=== PATIENT | female | born 1995 | race Caucasian/White ===

== ENCOUNTER 2016-05-25 16:03 | Inpatient (IN) | payer OTHER ==
[2016-05-25 17:02] LABS: Hematocrit 43 % (35-47); Hemoglobin 14.3 g/dl (12.0-16.0); Mean Corpuscular HGB Conc 33 g/dl (31-36); Mean Corpuscular Hemoglobin 29 pg (27-31); Mean Corpuscular Volume 87 fL (80-97); Mean Platelet Volume 8 um3 (7.4-10.4); Red Blood Count 4.98 10^6/ul (4.0-5.4); Red Cell Distribution Width 13 % (10.5-15); White Blood Count 8.4 10^3/ul (3.5-10.8)
[2016-05-25 17:09] LABS: Urine Bacteria Absent (Absent); Urine Bilirubin Negative (Negative); Urine Glucose Negative (Negative); Urine Nitrite Negative (Negative)
[2016-05-25 17:16] LABS: ALT 15 U/L (7-52); AST 17 U/L (13-39); Albumin 4.5 g/dL (3.2-5.2); Alkaline Phosphatase 69 U/L (34-104); Anion Gap 5 mmol/L (2-11); BUN/Creatinine Ratio 13.6 (8-20); Blood Urea Nitrogen 12 mg/dL (6-24); CO2 Carbon Dioxide 26 mmol/L (22-32); Calcium 9.8 mg/dL (8.6-10.3); Chloride 106 mmol/L (101-111); EGFR African American 105.4 (>60); EGFR Non-African American 81.9 (>60); Glucose 91 mg/dL (70-100); Potassium 3.9 mmol/L (3.5-5.0); Sodium 137 mmol/L (133-145); Total Protein 7.5 g/dL (6.4-8.9)
[2016-05-25 17:20] LABS: Benzodiazepine Urine Screen None Detected (None Detect)
[2016-05-25 18:00] LABS: Acetaminophen < 15 mcg/mL; Alcohol < 10 mg/dL (<10); Salicylate < 2.50 mg/dL (<30)
--- NOTE | 2016-05-25 18:01 | ED ---
Cecilio Harry Adam, scribed for Bran Her MD on 05/25/16 at 1631 . Psychiatric Complaint - HPI Summary HPI Summary: Pt is a 20 year old female presenting with a "dissociative episode" and SI. She states that for the past week she has had dissociative episodes approximately once a day. This morning she "blacked out" at 03:00 and came to again in her living room hours later. She came to the ED because she could not reach her therapist or her psychiatrist. She does not remember anything between 03:00 and when she awoke in her living room but she states that she often harms herself when she dissociates like this. She denies inflicting any self-harm today. She believes that stress tends to cause her to dissociate. Dr. Mina is her psychiatrist but she states that she has not seen her in awhile because she has been busy with court and work. She was previously on Wellbutrin and Seroquel but has not been taking them recently. PMHx includes anxiety, depression, PTSD, and DM. - History Of Current Complaint Chief Complaint: EDMentalHealth Time Seen by Provider: 05/25/16 16:22 Hx Obtained From: Patient Onset/Duration: Gradual Onset, Lasting Hours, Still Present Timing: Constant Severity Initially: Moderate Severity Currently: Mild Character: Depressed, Anxious Aggravating Factor(s): Recent Stress Alleviating Factor(s): Nothing Related History: Positive For: Prior Psychiatric Issues Has Suicidal: Reports: Thoughts - Allergies/Home Medications Allergies/Adverse Reactions: Allergies Allergy/AdvReac Type Severity Reaction Status Date / Time Fish Allergy Allergy Severe Swelling Verified 05/25/16 16:09 Of Face,Lips,& Throat Lactose Intolerance (GI) Allergy Intermediate Stomach Verified 05/25/16 16:09 Cramps Codeine Allergy Rash And Verified 05/25/16 16:09 Itching; "throat swelling" Latex Allergy Rash Verified 05/25/16 16:09 Venlafaxine [From Effexor] Allergy Hives; Verified 05/25/16 16:09 "throat swelling" adhesives Allergy Severe Rash And Uncoded 05/25/16 16:09 Itching shellfish Allergy Severe Swelling Uncoded 05/25/16 16:09 Of Face,Lips,& Throat PMH/Surg Hx/FS Hx/Imm Hx Endocrine/Hematology History: Reports: Hx Diabetes - 1 1/2 yrs ago gestational resolved, Hx Thyroid Disease Cardiovascular History: Denies: Hx Hypertension Respiratory History: Reports: Hx Seasonal Allergies Denies: Hx Asthma, Hx Chronic Obstructive Pulmonary Disease (COPD), Hx Sleep Apnea GI History: Reports: Other GI Disorders - hx bowel sx, working with PCP Denies: Hx Ulcer History: Reports: Hx Kidney Infection, Other Problems/Disorders - freq utis currently tx. PID Neurological History: Reports: Hx Headaches, Hx Migraine Psychiatric History: Reports: Hx Anxiety, Hx Depression, Hx Post Traumatic Stress Disorder, Hx Community Mental Health Tx, Hx Substance Abuse, Other Psychiatric Issues/Disorders - borderline personality disorder, hallucinations Denies: Hx Eating Disorder, Hx of Violent Episodes Against Others - Surgical History Surgery Procedure, Year, and Place: -JUL 09 - Immunization History Date of Tetanus Vaccine: unknown Date of Influenza Vaccine: none Infectious Disease History: No Infectious Disease History: Denies: Hx Clostridium Difficile, Hx Hepatitis, Hx Human Immunodeficiency Virus (HIV), Hx of Known/Suspected MRSA, Hx Shingles, Hx Tuberculosis, Hx Known/ Suspected VRE, Hx Known/Suspected VRSA, History Other Infectious Disease, Traveled Outside the [place] in Last 30 Days - Family History Known Family History: Positive: Diabetes Negative: Other - [place] - Social History Occupation: Employed Full-time Lives: Alone Alcohol Use: Rare Hx Substance Use: Yes Substance Use Type: Reports: Marijuana Substance Use Comment - Amount & Last Used: last use September 2015 Hx Tobacco Use: Yes Smoking Status (MU): Light Every Day Tobacco Smoker Type: Cigarettes Amount Used/How Often: 1 PACK Q3 DAYS Length of Time of Smoking/Using Tobacco: 3 years Have You Smoked in the Last Year: Yes Review of Systems Constitutional: Negative Negative: Fever Skin: Negative Negative: Bruising Positive: Anxious, Depressed All Other Systems Reviewed And Are Negative: Yes Physical Exam Triage Information Reviewed: Yes Vital Signs On Initial Exam: Initial Vitals Temp Pulse Resp BP Pulse Ox 97.7 F 109 16 117/72 98 05/25/16 16:06 05/25/16 16:06 05/25/16 16:06 05/25/16 16:06 05/25/16 16:06 Vital Signs Reviewed: Yes Appearance: Positive: Well-Appearing, No Pain Distress Skin: Positive: Warm, Skin Color Reflects Adequate Perfusion, Dry Head/Face: Positive: Normal Head/Face Inspection Eyes: Positive: Normal ENT: Positive: Normal ENT inspection Neck: Positive: Supple, Nontender Respiratory/Lung Sounds: Positive: Clear to Auscultation, Breath Sounds Present Cardiovascular: Positive: RRR Abdomen Description: Positive: Nontender, Soft Bowel Sounds: Positive: Present Musculoskeletal: Positive: Normal Neurological: Positive: Normal Psychiatric: Positive: Depressed Diagnostics - Vital Signs Vital Signs Temp Pulse Resp BP Pulse Ox 05/25/16 16:06 97.7 F 109 16 117/72 98 - Laboratory Lab Results: Lab Results 05/25/16 05/25/16 05/25/16 Range/Units 16:43 16:43 16:43 WBC 8.4 (3.5-10.8) 10^3/ul RBC 4.98 (4.0-5.4) 10^6/ul Hgb 14.3 (12.0-16.0) g/dl Hct 43 (35-47) % MCV 87 (80-97) fL MCH 29 (27-31) pg MCHC 33 (31-36) g/dl RDW 13 (10.5-15) % Plt Count 222 (150-450) 10^3/ul MPV 8 (7.4-10.4) um3 Neut % (Auto) 62.9 (38-83) % Lymph % (Auto) 26.6 (25-47) % Rab[place] % (Auto) 8.9 (1-9) % Eos % (Auto) 1.1 (0-6) % Baso % (Auto) 0.5 (0-2) % Absolute Neuts (auto) 5.3 (1.5-7.7) 10^3/ul Absolute Lymphs (auto) 2.2 (1.0-4.8) 10^3/ul Absolute Monos (auto) 0.8 (0-0.8) 10^3/ul Absolute Eos (auto) 0.1 (0-0.6) 10^3/ul Absolute Basos (auto) 0 (0-0.2) 10^3/ul Absolute Nucleated RBC 0 10^3/ul Nucleated RBC % 0 Sodium 137 (133-145) mmol/L Potassium 3.9 (3.5-5.0) mmol/L Chloride 106 (101-111) mmol/L Carbon Dioxide 26 (22-32) mmol/L Anion Gap 5 (2-11) mmol/L BUN 12 (6-24) mg/dL Creatinine 0.88 (0.51-0.95) mg/dL Est GFR ( Amer) 105.4 (>60) Est GFR (Non-Af Amer) 81.9 (>60) BUN/Creatinine Ratio 13.6 (8-20) Glucose 91 (70-100) mg/dL Calcium 9.8 (8.6-10.3) mg/dL Total Bilirubin 0.50 (0.2-1.0) mg/dL AST 17 (13-39) U/L ALT 15 (7-52) U/L Alkaline Phosphatase 69 (34-104) U/L Total Protein 7.5 (6.4-8.9) g/dL Albumin 4.5 (3.2-5.2) g/dL Globulin 3.0 (2-4) g/dL Albumin/Globulin Ratio 1.5 (1-3) TSH Pending Beta HCG, Quant < 0.60 mIU/mL Urine Color Yellow Urine Appearance Cloudy Urine pH 5.0 (5-9) Ur Specific [place] 1.020 (1.010-1.030) Urine Protein Negative (Negative) Urine Ketones Negative (Negative) Urine Blood 1+ H (Negative) Urine Nitrate Negative (Negative) Urine Bilirubin Negative (Negative) Urine Urobilinogen Negative (Negative) Ur Leukocyte Esterase 2+ H (Negative) Urine WBC (Auto) Trace(0-5/hpf) (Absent) Urine RBC (Auto) 1+(3-5/hpf) H (Absent) Ur Squamous Epith Cells Present H (Absent) Urine Bacteria Absent (Absent) Urine Glucose Negative (Negative) Salicylates Pending Urine Opiates Screen (None Detect) Acetaminophen Pending Ur Barbiturates Screen (None Detect) Ur Phencyclidine Scrn (None Detect) Ur Amphetamines Screen (None Detect) U Benzodiazepines Scrn (None Detect) Urine Cocaine Screen (None Detect) U Cannabinoids Screen (None Detect) Serum Alcohol Pending 05/25/16 Range/Units 16:43 WBC (3.5-10.8) 10^3/ul RBC (4.0-5.4) 10^6/ul Hgb (12.0-16.0) g/dl Hct (35-47) % MCV (80-97) fL MCH (27-31) pg MCHC (31-36) g/dl RDW (10.5-15) % Plt Count (150-450) 10^3/ul MPV (7.4-10.4) um3 Neut % (Auto) (38-83) % Lymph % (Auto) (25-47) % [place] % (Auto) (1-9) % Eos % (Auto) (0-6) % Baso % (Auto) (0-2) % Absolute Neuts (auto) (1.5-7.7) 10^3/ul Absolute Lymphs (auto) (1.0-4.8) 10^3/ul Absolute Monos (auto) (0-0.8) 10^3/ul Absolute Eos (auto) (0-0.6) 10^3/ul Absolute Basos (auto) (0-0.2) 10^3/ul Absolute Nucleated RBC 10^3/ul Nucleated RBC % Sodium (133-145) mmol/L Potassium (3.5-5.0) mmol/L Chloride (101-111) mmol/L Carbon Dioxide (22-32) mmol/L Anion Gap (2-11) mmol/L BUN (6-24) mg/dL Creatinine (0.51-0.95) mg/dL Est GFR ( Amer) (>60) Est GFR (Non-Af Amer) (>60) BUN/Creatinine Ratio (8-20) Glucose (70-100) mg/dL Calcium (8.6-10.3) mg/dL Total Bilirubin (0.2-1.0) mg/dL AST (13-39) U/L ALT (7-52) U/L Alkaline Phosphatase (34-104) U/L Total Protein (6.4-8.9) g/dL Albumin (3.2-5.2) g/dL Globulin (2-4) g/dL Albumin/Globulin Ratio (1-3) TSH Beta HCG, Quant mIU/mL Urine Color Urine Appearance Urine pH (5-9) Ur Specific [place] (1.010-1.030) Urine Protein (Negative) Urine Ketones (Negative) Urine Blood (Negative) Urine Nitrate (Negative) Urine Bilirubin (Negative) Urine Urobilinogen (Negative) Ur Leukocyte Esterase (Negative) Urine WBC (Auto) (Absent) Urine RBC (Auto) (Absent) Ur Squamous Epith Cells (Absent) Urine Bacteria (Absent) Urine Glucose (Negative) Salicylates Urine Opiates Screen None detected (None Detect) Acetaminophen Ur Barbiturates Screen None detected (None Detect) Ur Phencyclidine Scrn None detected (None Detect) Ur Amphetamines Screen None detected (None Detect) U Benzodiazepines Scrn None detected (None Detect) Urine Cocaine Screen None detected (None Detect) U Cannabinoids Screen Presumptive positive H (None Detect) Serum Alcohol Result Diagrams: 05/25/16 16:43 05/25/16 16:43 Lab Statement: Any lab studies that have been ordered have been reviewed, and results considered in the medical decision making process. Course/Dx - Course Course Of Treatment: Stephanie presented concerned for her safety after being off medications for a prolonged time. She has been medically cleared and is awaiting [facility]. - Differential Dx/Clinical Impression Provider Diagnosis: Depression Discharge - Discharge Plan Condition: Stable Disposition: HOME The documentation as recorded by the Cecilio mancuso Adam accurately reflects the service I personally performed and the decisions made by me, Bran Her MD.
[2016-05-25 18:11] LABS: TSH (Thyroid Stimulating Horm) 7.84 mcIU/mL (0.34-5.60)
[2016-05-25] MEDS ORDERED: Ibuprofen TAB* 600 MG PO ONE (19:59)
[2016-05-26] MEDS ORDERED: Nicotine Inhaler* 10 MG AMP INH PRN (01:43)
[2016-05-26] MEDS ORDERED: Acetaminophen TAB* 325 MG PO PRN (01:43)
[2016-05-26] MEDS ORDERED: Nicotine GUM* 2 MG PO PRN (01:43)
[2016-05-26] MEDS ORDERED: Al Hydrox/Mg Hydrox/Simet LIQ* 30 ML UDC PO PRN (01:43)
[2016-05-26] MEDS ORDERED: Mouth Piece, Nicotine* 1 EACH CARTRIDGE INH SCH (01:43)
[2016-05-26] MEDS: Nicotine PATCH 14 MG/24 HR* PATCH TRANSDERM SCH ×2 (11:11→11:41)
[2016-05-26] MEDS: Vitamin THERAPEUTIC TAB PO SCH ×2 (11:11→11:43)
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
[2016-05-26] MEDS: Levothyroxine TAB* 150 MCG TAB PO SCH (16:10)
[2016-05-26] MEDS: Nicotine Patch Removal NOTE PATCH OFF SCH (20:44)
[2016-05-26] MEDS ORDERED: QUEtiapine TAB* 25 MG PO SCH (21:00)
[2016-05-27] MEDS: Levothyroxine TAB* 150 MCG TAB PO SCH (06:30)
[2016-05-27] MEDS: Nicotine PATCH 14 MG/24 HR* PATCH TRANSDERM SCH (10:00)
[2016-05-27] MEDS: Vitamin THERAPEUTIC TAB PO SCH (10:00)
[2016-05-27] MEDS: Citalopram TAB* 10 MG PO SCH (10:46)
--- NOTE | 2016-05-27 12:35 | PN ---
Subjective - Subjective Service Type: 16961 Hosp care 15 min low complexity Subjective: Usman reports prominent symptom of irritability to the degree that the sounds of peoples voices make her agitated, attributes this to Seroquel. Reports only dry mouth with first dose of Celexa 10 mg. Denies any active psychosis, denies any dangerous intent or plan. Objective - Appearance Appearance: Well Developed/Nourished, Healthy Appearing Dysmorphic Features: No Hygiene: Normal Grooming: Well Kept - Behavior Psychomotor Activities: Normal Exhibits Abnormal Movement: No - Attitude and Relatedness Attitude and Relatedness: Well Related Eye Contact: Good - Speech Quality: Unpressured Latencies: Normal Quantity: Appropriate - Mood Patient's Decription of Mood: "Okay" - Affect Observed Affect: Good Affect Consistent with: Euthymia - Thought Process Patient's Thought Process: Coherent, Goal Directed Thought Content: No Passive Wish, No Suicidal Planning, No Homicidal Ideation, No Paranoid Ideation - Sensorium Experiencing Hallucinations: No, Sensorium is Clear Type of Hallucinations: Visual: No, Auditory: No, Command: No - Level of Consciousness Level of Consciousness: Alert Orientation: Yes Intact, Yes Orientated to Time, Yes Orientated to Place, Yes Orientated to Person - Impulse Control Impulse Control: Intact - Insight and Judgement Insight and Judgement: Fair - Group Participation Particating in Group Activities: No - Medication Management Medication Management Adherence: Yes Assessment - Assessment Merits Inpatient Hospitalization: For Stabilization, To Initiate Treatment, Consolidate Improvements, For Discharge Planning Inpatient DSM-IV Dx: Schizoaffective disorder, depressive type. r/o PTSD. Panic disorder Clinical Impression: Ms Kendrick Burns was admitted for SI to OD on old meds she found, also a severe dissociative spell. We have restarted Lamictal, added Celexa (which is new to her) and replaced Seroquel with Abilify 5 mg starting dose. [facility] reports remission of SI and stable mood and anticipates being ready to discharge tomorrow to continued care at [facility]. She has declined most groups, but has been med compliant. She has been pleasant and collaborative. Plan - Plan Treatment Plan: Name: USMAN HERRERA Birthdate: 1995 [id number] Continue Celexa, Abilify, levothyroxine, lamotrigine. Monitor MS and safety. Plan toward d/c tomorrow or Wednesday. Still awaiting return call from Dr Mina. Continued Medication Management: Different Medication Medications: Current Medications Acetaminophen (Tylenol Tab*) 650 mg PO Q4H PRN PRN Reason: PAIN or TEMP > 101 F Last Admin: 05/26/16 14:02 Dose: 650 mg Al Hydrox/Mg Hydrox/Simethicone (Maalox Plus*) 30 ml PO Q4H PRN PRN Reason: INDIGESTION Aripiprazole (Abilify Tab*) 5 mg PO DAILY [facility] Citalopram Hydrobromide (Celexa Tab*) 10 mg PO DAILY [facility] Last Admin: 05/27/16 10:46 Dose: 10 mg Device (Nicotine Mouth Piece*) 1 each INH .[facility] Levothyroxine Sodium (Synthroid Tab*) 150 mcg PO 0600 [facility] Last Admin: 05/27/16 06:30 Dose: 150 mcg Multivitamins (Theragran Tab*) 1 tab PO DAILY [facility] Last Admin: 05/27/16 10:00 Dose: 1 tab Nicotine (Nicotine Inhaler*) 10 mg INH Q2H PRN PRN Reason: CRAVING Nicotine (Nicotine Patch 14 Mg/24 Hr*) 1 patch TRANSDERM DAILY [facility] Last Admin: 05/27/16 10:00 Dose: 1 patch Nicotine Polacrilex (Nicotine Gum*) 2 mg PO Q2H PRN PRN Reason: CRAVING Pharmacy Profile Note (Nicotine Patch Removal Note*) 1 note PATCH OFF 2100 [facility] Last Admin: 05/26/16 20:44 Dose: 1 note - Discharge Plan Discharge Plan: Outpatient Follow Up Outpatient Program: [facility]
[2016-05-27] MEDS: ARIPiprazole TAB* 5 MG PO SCH (13:19)
[2016-05-27] MEDS ORDERED: lamoTRIgine TAB(*) 25 MG PO SCH (21:00)
[2016-05-27] MEDS: Nicotine Patch Removal NOTE PATCH OFF SCH (21:05)
[2016-05-28] MEDS: Levothyroxine TAB* 150 MCG TAB PO SCH (05:59)
[2016-05-28 09:02] VITALS: BP 111/76
[2016-05-28] MEDS: Nicotine PATCH 14 MG/24 HR* PATCH TRANSDERM SCH (09:37)
[2016-05-28] MEDS: Vitamin THERAPEUTIC TAB PO SCH (09:37)
[2016-05-28] MEDS: ARIPiprazole TAB* 5 MG PO SCH (09:37)
[2016-05-28] MEDS: Citalopram TAB* 10 MG PO SCH (09:37)
--- NOTE | 2016-05-28 10:19 | DS ---
Subjective - Subjective Service Types: 44[address] [facility]osp [place] Day Mgmt simple under 30 min Discharge Date: 05/28/16 Subjective: Stephanie reports sustained and full remission of SI and dissociative experience. She reports feeling safe and ready for discharge. She complains of tolerable hiccups since starting abilify, but would prefer to continue the trial of this medication. Dr Mina left me a voice message saying she last saw Stephanie in September, that Stephanie had most recently been on Wellbutrin and Seroquel, and has had trials of Saphris, Zyprexa and Latuda, but stopped them due to side effects or ineffectiveness. Objective - Appearance Appearance: Healthy Appearing Dysmorphic Features: No Hygiene: Normal Grooming: Fairly Well Kept - Behavior Psychomotor Activities: Normal Exhibits Abnormal Movement: No - Attitude and Relatedness Attitude and Relatedness: Cooperative Eye Contact: Good - Speech Quality: Unpressured Latencies: Normal Quantity: Appropriate - Mood Patient's Decription of Mood: "Fine" - Affect Observed Affect: Good Affect Consistent with: Euthymia - Thought Process Patient's Thought Process: Coherent, Goal Directed Thought Content: No Passive Wish, No Suicidal Planning, No Homicidal Ideation, No Paranoid Ideation - Sensorium Experiencing Hallucinations: No, Sensorium is Clear Type of Hallucinations: Visual: No, Auditory: No, Command: No - Level of Consciousness Level of Consciousness: Alert Orientation: Yes Intact, Yes Orientated to Time, Yes Orientated to Place, Yes Orientated to Person - Impulse Control Impulse Control: Intact - Insight and Judgement Insight and Judgement: Fair - Group Participation Particating in Group Activities: Yes Group Participation Comments: but declines most groups - Medication Management Medication Management Adherence: Yes Treatment Course & Assessment Clinical Course & Impression: Ms Kendrick Burns was admitted for SI to OD on old meds she found, also a severe dissociative spell. We have restarted Lamictal, added Celexa (which is new to her) and replaced Seroquel with Abilify 5 mg starting dose. She reports remission of SI and stable mood and anticipates being ready to discharge tomorrow to continued care at [facility]. She has declined most groups, but has been med compliant. She has been pleasant and collaborative. 05.28.16 Stephanie is cleared for discharge. She has reported full remission of all dangerous intent and plan, and no recurrence of dissociation, the symptoms prompting this admission out of safety concerns. She is assessed as at no acutely increased risk of harm to self or others. She will follow up with outpatient providers regarding report of cramping and lower back pain with history of renal infection that makes her worried at the possibility of recurrence. [facility] Merits Inpatient Hospitalization: No Clear for Discharge: Adequate Clinical Respons, Acceptable Safety Profile, Low Utility of Inpt Care Inpatient DSM-IV Dx: Schizoaffective disorder, depressive type. r/o PTSD. Panic disorder - Valentine III Medical Illness: hypothyroidism. VSD leading to occasional syncope - Valentine IV Stressors: marital stress, limited finances Family: has been talking of divorce, lives with younger sister Primary Support Group: sister - Valentine V SVV-[id number]-[id number]: 65 Estimate of Highest-Past Year: 65 Discharge Planning - Discharge Planning Discharge Plan: Outpatient Follow Up Outpatient Program: [facility] Recommendations for Continuing Care: Medication Management, Psychotherapy, Primary Care Followup - re ?UTI Medications: Aripiprazole (Abilify Tab*) 5 mg PO DAILY [facility] Last Admin: 05/28/16 09:37 Dose: 5 mg Citalopram Hydrobromide (Celexa Tab*) 10 mg PO DAILY [facility] Last Admin: 05/28/16 09:37 Dose: 10 mg Lamotrigine (Lamictal Tab(*)) 25 mg PO BEDTIME [facility] Last Admin: 05/27/16 21:05 Dose: 25 mg Levothyroxine Sodium (Synthroid Tab*) 150 mcg PO 0600 [facility] Last Admin: 05/28/16 05:59 Dose: 150 mcg Multivitamins (Theragran Tab*) 1 tab PO DAILY [facility] Last Admin: 05/28/16 09:37 Dose: 1 tab Nicotine (Nicotine Patch 14 Mg/24 Hr*) 1 patch TRANSDERM DAILY [facility] Last Admin: 05/28/16 09:37 Dose: 1 patch x 14 days, then 7 mg patches daily x 14 days Discharge Planning: Prescriptions provided for discharge [x] Yes [] No Follow up care details as per social work arrangements. Patient response to discharge plan: [x] eager for discharge [x] agreeable with discharge plan [] ambivalent about discharge [] disagrees with discharge today Stephanie agreed to follow up immediately with PCP regarding UTI symptoms, hypothyroidism. Stephanie voiced understanding and acceptance of potential side effects of Celexa, Abilify and Lamictal that I reviewed with her. She agreed she would seek immediate medical attention in case rash occurs while taking Lamictal.
== END 2016-05-28 14:05 | disposition home or self-care (01) | DRG 750 ==
LOC: ED 16:03 → BSU 21:14
PROVIDERS: ADMIT Psychiatry & Neurology Psychiatry; ATTEND Psychiatry & Neurology Psychiatry
PROC: GZ3ZZZZ Medication Management (ICD-10-PCS; principal; 2016-05-25)
DX: F25.1 Schizoaffective disorder, depressive type (principal); Q21.0 Ventricular septal defect; F43.10 Post-traumatic stress disorder, unspecified; F41.0 Panic disorder [episodic paroxysmal anxiety]; E03.9 Hypothyroidism, unspecified; R55 Syncope and collapse; F32.9 Major depressive disorder, single episode, unspecified; E73.9 Lactose intolerance, unspecified; J30.2 Other seasonal allergic rhinitis; G43.909 Migraine, unspecified, not intractable, without status migrainosus; F60.3 Borderline personality disorder; F12.90 Cannabis use, unspecified, uncomplicated; F17.210 Nicotine dependence, cigarettes, uncomplicated; Z91.5 Personal history of self-harm; Z81.8 Family history of other mental and behavioral disorders; Z88.5 Allergy status to narcotic agent; Z91.040 Latex allergy status; Z91.013 Allergy to seafood; Z91.018 Allergy to other foods; Z91.048 Other nonmedicinal substance allergy status; Z88.8 Allergy status to other drugs, medicaments and biological substances; Z83.3 Family history of diabetes mellitus; Z72.89 Other problems related to lifestyle
CPT/HCPCS: 36415; 80053; 80307; 80320; 80329; 81003; 81015; 84443; 84702; 85025; 87086; 99222; 99231; 99238; 99406; A9270-GY; G0480

== ENCOUNTER 2016-09-21 14:46 | Emergency (ER) | payer OTHER ==
[2016-09-21 15:06] VITALS: BP 101/73
--- NOTE | 2016-09-21 17:01 | UC ---
Abdominal Pain Female HPI - HPI Summary HPI Summary: Low abd pain, cramping, low back pain, urinary frequency starting yesterday. Took preg test yesterday, it was positive, had IUD out 08/19/16. Denies fever or vaginal bleeding. Back pain feels like what she gets with UTIs. (1 live 1 spontaneous ab) - History of Current Complaint Chief Complaint: UCAbdominalPain Stated Complaint: ABD PAIN,POS PREG Time Seen by Provider: 09/21/16 16:37 Hx Obtained From: Patient Hx Last Menstrual Period: 08/05/16 ?: Yes Onset/Duration: Gradual Onset, Lasting Days Timing: Constant Severity Initially: Mild Severity Currently: Mild Location: Suprapubic Radiates: Yes Radiates to: Back Character: Cramping Alleviating Factor(s): Nothing Associated Signs and Symptoms: Positive: Urinary Symptoms Allergies/Adverse Reactions: Allergies Allergy/AdvReac Type Severity Reaction Status Date / Time Fish Allergy Allergy Severe Swelling Verified 09/21/16 14:55 Of Face,Lips,& Throat Lactose Intolerance (GI) Allergy Intermediate Stomach Verified 09/21/16 14:55 Cramps Codeine Allergy Rash And Verified 09/21/16 14:55 Itching; "throat swelling" Latex Allergy Rash Verified 09/21/16 14:55 Venlafaxine [From Effexor] Allergy Hives; Verified 09/21/16 14:55 "throat swelling" adhesives Allergy Severe Rash And Uncoded 09/21/16 14:55 Itching shellfish Allergy Severe Swelling Uncoded 09/21/16 14:55 Of Face,Lips,& Throat Home Medications: Home Medications Levothyroxine TAB* [Synthroid 150 MCG TAB*] 175 mcg PO DAILY 09/21/16 [History Confirmed 09/21/16] lamoTRIgine TAB(*) [Lamictal TAB(*)] 100 mg PO BEDTIME 09/21/16 [History Confirmed 09/21/16] PMH/Surg Hx/FS Hx/Imm Hx Endocrine History Of: Reports: Diabetes - 1 1/2 yrs ago gestational resolved, Thyroid Disease, Hypothyroidism - synthroid 88mcg daily Cardiovascular History Of: Reports: Cardiac Disorders Denies: Hypertension Respiratory History Of: Denies: COPD, Asthma GI/ History Of: Denies: Ulcer Neurological History Of: Reports: Migraine Denies: Dementia Psychological History Of: Reports: Anxiety, Depression - Surgical History Surgical History: Yes Surgery Procedure, Year, and Place: Appendectomy Jun 2015 - Family History Known Family History: Positive: Diabetes Negative: Other - [place] - Social History Lives: With Family Alcohol Use: Occasionally Substance Use Type: Marijuana Substance Use Comment - Amount & Last Used: drug screen positive for vilma Smoking Status (MU): Light Every Day Tobacco Smoker Type: Cigarettes Amount Used/How Often: 1/2 pack a day Length of Time of Smoking/Using Tobacco: 3 years Have You Smoked in the Last Year: Yes Household Exposure Type: Cigarettes - Immunization History Most Recent Influenza Vaccination: over five years ago Most Recent Tetanus Shot: utd Most Recent Pneumonia Vaccination: n/a Vaccination Up to Date: Yes Review of Systems Constitutional: Negative Skin: Negative Eyes: Negative ENT: Negative Respiratory: Negative Cardiovascular: Negative Gastrointestinal: Abdominal Pain Genitourinary: Frequency, Urgency Motor: Negative Neurovascular: Negative Musculoskeletal: Negative Neurological: Negative Psychological: Negative All Other Systems Reviewed And Are Negative: Yes Physical Exam Triage Information Reviewed: Yes Appearance: Well-Appearing, No Pain Distress, Well-Nourished Vital Signs: Initial Vital Signs Temp 97.7 F 09/21/16 14:57 Pulse 91 09/21/16 14:57 Resp 20 09/21/16 14:57 BP 101/73 09/21/16 14:57 Pulse Ox 100 09/21/16 14:57 Vital Signs Reviewed: Yes Eye Exam: Normal Eyes: Positive: Conjunctiva Clear ENT Exam: Normal ENT: Positive: Normal ENT inspection, Hearing grossly normal, Pharynx normal, TMs normal Dental Exam: Normal Neck exam: Normal Neck: Positive: Supple, Nontender, No Lymphadenopathy Respiratory Exam: Normal Respiratory: Positive: Chest non-tender, Lungs clear, Normal breath sounds, No respiratory distress, No accessory muscle use Cardiovascular Exam: Normal Cardiovascular: Positive: RRR, No Murmur Abdomen Description: Positive: No Organomegaly, Soft. Negative: CVA Tenderness (R), CVA Tenderness (L), Distended Bowel Sounds: Positive: Present Musculoskeletal Exam: Normal Neurological Exam: Normal Neurological: Positive: Alert Psychological Exam: Normal Skin Exam: Normal Abd Pain Female Course/Dx - Differential Dx/Diagnosis Provider Diagnoses: . UTI Discharge - Discharge Plan Condition: Stable Disposition: HOME Prescriptions: Cephalexin CAP* [Keflex 500 CAP*] 500 mg PO TID #21 cap Vitamin TAB* 1 tab PO DAILY #60 tab Patient Education Materials: (ED), Urinary Tract Infection in (ED) Referrals: Nanette Lucio MD [Primary Care Provider] - Chester Abdi MD [Medical Doctor] - Additional Instructions: Please follow up with Dr. Abdi for routine care. If you develop fever, worsening back pain, or prolonged urinary symptoms, please return here.
== END 2016-09-21 16:59 | disposition home or self-care (01) ==
LOC: UCEAST 14:46
DX: O23.40 Unspecified infection of urinary tract in pregnancy, unspecified trimester (principal); G43.909 Migraine, unspecified, not intractable, without status migrainosus; F41.9 Anxiety disorder, unspecified; F32.9 Major depressive disorder, single episode, unspecified; F17.210 Nicotine dependence, cigarettes, uncomplicated; O99.320 Drug use complicating pregnancy, unspecified trimester; F12.90 Cannabis use, unspecified, uncomplicated; O99.330 Smoking (tobacco) complicating pregnancy, unspecified trimester; O99.340 Other mental disorders complicating pregnancy, unspecified trimester; Z91.040 Latex allergy status; Z91.011 Allergy to milk products; Z88.5 Allergy status to narcotic agent; Z91.013 Allergy to seafood
CPT/HCPCS: 81003; 87077; 87086; 87186; 99212; G0463

== ENCOUNTER 2016-09-24 18:48 | Emergency (ER) | payer OTHER ==
[2016-09-24 21:19] LABS: Urine Bacteria Absent (Absent); Urine Bilirubin Negative (Negative); Urine Glucose Negative (Negative); Urine Nitrite Negative (Negative)
[2016-09-24 21:46] VITALS: BP 112/70
[2016-09-24 22:38] LABS: Hematocrit 43 % (35-47); Hemoglobin 14.5 g/dl (12.0-16.0); Mean Corpuscular HGB Conc 34 g/dl (31-36); Mean Corpuscular Hemoglobin 29 pg (27-31); Mean Corpuscular Volume 88 fL (80-97); Mean Platelet Volume 9 um3 (7.4-10.4); Red Blood Count 4.93 10^6/ul (4.0-5.4); Red Cell Distribution Width 13 % (10.5-15); White Blood Count 10.8 10^3/ul (3.5-10.8)
[2016-09-24 22:52] LABS: Albumin 4.1 g/dL (3.2-5.2); BUN/Creatinine Ratio 17.4 (8-20); Calcium 9.5 mg/dL (8.6-10.3); EGFR African American 107.1 (>60); EGFR Non-African American 83.3 (>60); Globulin 2.7 g/dL (2-4); Potassium 3.9 mmol/L (3.5-5.0); Total Bilirubin 0.3 mg/dL (0.2-1.0); Total Protein 6.8 g/dL (6.4-8.9)
--- NOTE | 2016-09-24 22:56 | RAD ---
HISTORY: , abdominal pain COMPARISONS: None relevant TECHNIQUE: Multiple transverse and longitudinal ultrasound images were obtained of the pelvis using grayscale, color Doppler, and spectral Doppler imaging using the endovaginal transducer. FINDINGS: UTERUS: The uterus measures 9 x 4.5 x 5.2 cm. The uterus is normal in shape, size, contour, and echotexture. ENDOMETRIUM: The endometrial stripe is smooth. The endometrium measures 1.4 cm in thickness. No intrauterine gestation is identified. CUL-DE-SAC: There is no free fluid within the cul-de-sac. RIGHT OVARY: The right ovary measures 3.1 x 2.1 x 2.7 cm. Normal arterial and venous waveforms are identifiable within the ovary on spectral Doppler imaging. There is a 1.7 cm corpus luteum. LEFT OVARY: The left ovary measures 2.6 x 1.5 x 1.9 cm. Normal arterial and venous waveforms are identifiable within the ovary on spectral Doppler imaging. BLADDER: The bladder is not well visualized. IMPRESSION: NO INTRAUTERINE GESTATION IS IDENTIFIED. THE DIFFERENTIAL INCLUDES MISSED , EARLY INTRAUTERINE , OR ECTOPIC . RECOMMEND CORRELATION WITH SERIAL BETA-HCG LEVELS AND FOLLOW-UP IMAGING.
--- NOTE | 2016-09-24 23:56 | ED ---
Gasper Harry Aidan, scribed for Rosalva Lanuel on 09/24/16 at 2220 . Abdominal Pain/Female - HPI Summary HPI Summary: 21 y/o female presents to the ED with a complaint of acute, constant, mild-to- moderate (3/10 currently) right flank pain and abdominal pain described as cramping. Associated symptoms include nausea, diarrhea, and some spotting earlier today. Pt is with unknown gestation. She had an IUD removed . 2 days ago, she was diagnosed with a UTI. She has not started on Keflex that was prescribed to her at the Urgent Care, however, she plans to pickling grader her prescription tomorrow. Hx of smoking and thyroid problems. Blood type of 0+. - History of Current Complaint Chief Complaint: EDUrogenitalProblems Stated Complaint: LOWER ABD/RIGHT FLANK PAIN/ Time Seen by Provider: 09/24/16 21:49 Hx Obtained From: Patient Hx Last Menstrual Period: 08/05/16 ?: Yes Onset/Duration: Sudden Onset, Lasting Hours, Still Present Timing: Constant Severity Initially: Moderate Severity Currently: Mild Pain Intensity: 3 Pain Scale Used: 0-10 Numeric Location: Flank - right flank and lower abdominal pain Character: Cramping Aggravating Factor(s): Other: - unknown Alleviating Factor(s): Other: - unknown Associated Signs and Symptoms: Positive: Nausea, Diarrhea, Other: - some spotting Allergies/Adverse Reactions: Allergies Allergy/AdvReac Type Severity Reaction Status Date / Time Fish Allergy Allergy Severe Swelling Verified 09/24/16 20:38 Of Face,Lips,& Throat Lactose Intolerance (GI) Allergy Intermediate Stomach Verified 09/24/16 20:38 Cramps Codeine Allergy Rash And Verified 09/24/16 20:38 Itching; "throat swelling" Latex Allergy Rash Verified 09/24/16 20:38 Venlafaxine [From Effexor] Allergy Hives; Verified 09/24/16 20:38 "throat swelling" adhesives Allergy Severe Rash And Uncoded 09/24/16 20:38 Itching shellfish Allergy Severe Swelling Uncoded 09/24/16 20:38 Of Face,Lips,& Throat PMH/Surg Hx/FS Hx/Imm Hx Endocrine/Hematology History: Reports: Hx Diabetes - 1 1/2 yrs ago gestational resolved, Hx Thyroid Disease Cardiovascular History: Denies: Hx Hypertension Respiratory History: Reports: Hx Seasonal Allergies Denies: Hx Asthma, Hx Chronic Obstructive Pulmonary Disease (COPD), Hx Sleep Apnea GI History: Reports: Other GI Disorders - hx bowel sx, working with PCP Denies: Hx Ulcer History: Reports: Hx Kidney Infection, Other Problems/Disorders - freq utis currently tx. PID Musculoskeletal History: Reports: Hx Arthritis Denies: Hx Back Problems, Hx Bursitis, Hx Congenital Bone Abnormalities, Hx Fibromyalgia, Hx Gout, Hx Orthopedic Injury, Hx Osteoporosis, Hx Scoliosis, Hx Tendonitis, Other Musculoskeletal History Neurological History: Reports: Hx Headaches, Hx Migraine Denies: Hx Dementia, Hx Developmental Delay, Other Neuro Impairments/ Disorders Psychiatric History: Reports: Hx Anxiety, Hx Depression, Hx Post Traumatic Stress Disorder, Hx Inpatient Treatment, Hx Community Mental Health Tx, Hx Substance Abuse, Other Psychiatric Issues/Disorders - borderline personality disorder, hallucinations Denies: Hx Eating Disorder, Hx of Violent Episodes Against Others - Surgical History Surgery Procedure, Year, and Place: Appendectomy Jun 2015 - Immunization History Date of Tetanus Vaccine: unknown Date of Influenza Vaccine: none Infectious Disease History: No Infectious Disease History: Denies: Hx Clostridium Difficile, Hx Hepatitis, Hx Human Immunodeficiency Virus (HIV), Hx of Known/Suspected MRSA, Hx Shingles, Hx Tuberculosis, Hx Known/ Suspected VRE, Hx Known/Suspected VRSA, History Other Infectious Disease, Traveled Outside the [place] in Last 30 Days - Family History Known Family History: Positive: Diabetes Negative: Other - [place] - Social History Occupation: Employed Full-time Lives: With Family - children Alcohol Use: Occasionally Hx Substance Use: Yes Substance Use Type: Reports: Marijuana Substance Use Comment - Amount & Last Used: drug screen positive for marijauna Hx Tobacco Use: Yes Smoking Status (MU): Light Every Day Tobacco Smoker Type: Cigarettes Amount Used/How Often: 1/2 pack a day Length of Time of Smoking/Using Tobacco: 3 years Have You Smoked in the Last Year: Yes Review of Systems Constitutional: Negative Eyes: Negative ENT: Negative Cardiovascular: Negative Respiratory: Negative Positive: Abdominal Pain, Diarrhea, Nausea. Negative: Vomiting Genitourinary: Other - vaginal spotting today Positive: flank pain. Negative: burning, dysuria, discharge, frequency, hematuria, incontinence, pain, urgency, other Musculoskeletal: Negative Skin: Negative Neurological: Negative Psychological: Normal All Other Systems Reviewed And Are Negative: Yes Physical Exam Triage Information Reviewed: Yes Vital Signs On Initial Exam: Initial Vitals Temp Pulse Resp Pulse Ox 97.9 F 95 18 99 09/24/16 18:51 09/24/16 18:51 09/24/16 18:51 09/24/16 18:51 Vital Signs Reviewed: Yes Appearance: Positive: Well-Appearing, No Pain Distress Skin: Positive: Warm, Skin Color Reflects Adequate Perfusion, Dry Head/Face: Positive: Normal Head/Face Inspection Eyes: Positive: Normal ENT: Positive: Normal ENT inspection Neck: Positive: Supple, Nontender Cardiovascular: Positive: RRR Abdomen Description: Positive: Soft. Negative: Nontender - epigastric and pelvic tenderness Bowel Sounds: Positive: Present Musculoskeletal: Positive: Normal Neurological: Positive: Normal Psychiatric: Positive: Affect/Mood Appropriate - [place] Coma Scale Coma Scale Total: 15 Diagnostics - Vital Signs Vital Signs Temp Pulse Resp BP Pulse Ox 09/24/16 21:36 98.5 F 72 18 112/70 98 09/24/16 20:30 97.7 F 77 16 117/70 100 09/24/16 18:51 97.9 F 95 18 99 - Laboratory Lab Results: Lab Results 09/24/16 Range/Units 21:00 Urine Color Yellow Urine Appearance Clear Urine pH 6.0 (5-9) Ur Specific [place] 1.021 (1.010-1.030) Urine Protein Negative (Negative) Urine Ketones Negative (Negative) Urine Blood Negative (Negative) Urine Nitrate Negative (Negative) Urine Bilirubin Negative (Negative) Urine Urobilinogen Negative (Negative) Ur Leukocyte Esterase 1+ H (Negative) Urine WBC (Auto) Trace(0-5/hpf) (Absent) Urine RBC (Auto) 2+(6-10/hpf) H (Absent) Ur Squamous Epith Cells Present H (Absent) Urine Bacteria Absent (Absent) Urine Glucose Negative (Negative) Result Diagrams: 09/24/16 22:30 09/24/16 22:30 Lab Statement: Any lab studies that have been ordered have been reviewed, and results considered in the medical decision making process. - Ultrasound No standard instances Ultrasound Interpretation: No Acute Changes - TRANSVAGINAL US IMPRESSION: NO INTRAUTERINE GESTATION IS IDENTIFIED. THE DIFFERENTIAL INCLUDES MISSED , EARLY INTRAUTERINE , OR ECTOPIC . RECOMMEND CORRELATION WITH SERIAL BETA-HCG LEVELS AND FOLLOW-UP IMAGING. Ultrasound Interpretation Completed By: Radiologist Abdominal Pain Fem Course/Dx - Course Course Of Treatment: This is a 21 y/o female, unknown gestation. She has epigastric pain described as cramping and is tender to the pelvic area. Transvaginal US was negative. The patient will be diagnosed with abdominal pain and , however, she eloped before discharge. - Diagnoses Provider Diagnoses: Abdominal pain, Discharge - Discharge Plan Condition: Stable Disposition: OTHER Discharge Disposition Comment: eloped Referrals: Nanette Lucio MD [Primary Care Provider] - The documentation as recorded by the Gasper mancuso Aidan accurately reflects the service I personally performed and the decisions made by , Gordon Lan.
== END 2016-09-24 23:42 ==
LOC: ED 18:48
DX: R11.0 Nausea (principal); R19.7 Diarrhea, unspecified; R10.84 Generalized abdominal pain; O26.899 Other specified pregnancy related conditions, unspecified trimester; Z3A.00 Weeks of gestation of pregnancy not specified
CPT/HCPCS: 36415; 76817; 80053; 81003; 81015; 84702; 85025; 86850; 86900; 86901; 87086; 99282

== ENCOUNTER 2016-11-05 08:14 | Emergency (ER) | payer OTHER ==
[2016-11-05 08:29] VITALS: BP 106/66
--- NOTE | 2016-11-05 11:15 | UC ---
Charisma Harry Salem, scribed for Bolivar Black MD on 11/05/16 at 0851 . Complaint Female HPI - HPI Summary HPI Summary: Patient is a 21 y/o F A1 who presents to the with a complaint. She states that she is 10 months and 2 days , due in June 01. Her first child was through vaginal delivery and she is O positive. She reports pink discharge, lightheadedness with standing, and sharp pain in the central abd that radiates into her back bilaterally. Pt states that she has an appointment at [facility] in November. PMHx of DM. Patients medication reviewed this visit. - History Of Current Complaint Chief Complaint: UCGI Stated Complaint: 10 WK , CRAMPING Time Seen by Provider: 11/05/16 08:32 Hx Obtained From: Patient Hx Last Menstrual Period: 08/05/16 Onset/Duration: Gradual Onset, Lasting Days, Still Present Timing: Intermittent, Lasting Seconds Severity Initially: Moderate Severity Currently: Moderate Radiates to: Back. Character: Sharp Aggravating Factor(s): Nothing Alleviating Factor(s): Nothing Associated Signs And Symptoms: Positive: Vaginal Discharge Related Hx: - 3, Para - 1 - Allergies/Home Medications Allergies/Adverse Reactions: Allergies Allergy/AdvReac Type Severity Reaction Status Date / Time Fish Allergy Allergy Severe Swelling Verified 11/05/16 08:29 Of Face,Lips,& Throat Lactose Intolerance (GI) Allergy Intermediate Stomach Verified 11/05/16 08:29 Cramps Codeine Allergy Rash And Verified 11/05/16 08:29 Itching; "throat swelling" Latex Allergy Rash Verified 11/05/16 08:29 Venlafaxine [From Effexor] Allergy Hives; Verified 11/05/16 08:29 "throat swelling" adhesives Allergy Severe Rash And Uncoded 11/05/16 08:29 Itching shellfish Allergy Severe Swelling Uncoded 11/05/16 08:29 Of Face,Lips,& Throat Home Medications: Home Medications Levothyroxine TAB* [Synthroid 150 MCG TAB*] 225 mg PO DAILY 11/05/16 [History Confirmed 11/05/16] PMH/Surg Hx/FS Hx/Imm Hx Endocrine History: Diabetes - Surgical History Surgical History: Yes Surgery Procedure, Year, and Place: Appendectomy Jun 2015 - Family History Known Family History: Positive: Diabetes Negative: Other - [place] - Social History Alcohol Use: Occasionally Substance Use Type: Marijuana Substance Use Comment - Amount & Last Used: drug screen positive for vilma Smoking Status (MU): Light Every Day Tobacco Smoker Type: Cigarettes Amount Used/How Often: 1/2 pack a day Length of Time of Smoking/Using Tobacco: 3 years Have You Smoked in the Last Year: Yes Household Exposure Type: Cigarettes - Immunization History Most Recent Influenza Vaccination: over five years ago Most Recent Tetanus Shot: utd Most Recent Pneumonia Vaccination: n/a Vaccination Up to Date: Yes Review of Systems Constitutional: Negative Gastrointestinal: Abdominal Pain - Sharp pain in the central abd that radiates into her back bilaterally. Genitourinary: Other - [place] vaginal discharge. Neurological: Other - Lightheadedness with standing. All Other Systems Reviewed And Are Negative: Yes Physical Exam Triage Information Reviewed: Yes Vital Signs: Initial Vital Signs Temp 97.9 F 11/05/16 08:21 Pulse 91 11/05/16 08:21 Resp 18 11/05/16 08:21 BP 106/66 11/05/16 08:21 Pulse Ox 97 11/05/16 08:21 Vital Signs Reviewed: Yes - Additional Comments The patient is well-nourished in no acute distress and in no acute pain. The skin is warm and dry and skin color reflects adequate perfusion. HEENT: The head is normocephalic and atraumatic. The pupils are equal and reactive. The conjunctivae are clear and without drainage. Neck is supple with full range of motion and non-tender. Respiratory: Chest is non-tender. Lungs are clear to auscultation and breath sounds are symmetrical and equal. Cardiovascular: Hear is regular rate and rhythm. There is no murmur or rub auscultated. There is no peripheral edema and pulses are symmetrical and equal. Abdomen: The abdomen is soft. Tenderness over uterus. Musculoskeletal: There is no back pain noted. Extremities are non-tender with full range of motion. There is good capillary refill. There is no peripheral edema or calf tenderness elicited. Neurological: Patient is alert and oriented to person, place and time. The patient has symmetrical motor strength in all four extremities. Psychiatric: The patient has an appropriate affect and does not exhibit any anxiety or depression. Diagnostics - Laboratory Diagnostic Studies Completed/Ordered: US PREG IMPRESSION: She has a intrauterine at 11 weeks. No bleeding. Viable. Right corpus luteum cyst. Re-Evaluation - Re-Evaluation First Eval Re-Evaluation Time: 10:44 Comment: Informed pt of imaging results. Complaint Female Dx - Course Course Of Treatment: 21 y/o A1 presents with sharp pain in the central abd that radiates into her back bilaterally. She is 10 months and 2 days , due in June 01. She reports pink discharge and lightheadedness with standing. US completed. Pt will be DCd with follow up with Dr. Chauhan. - Differential Dx/Diagnosis Differential Diagnosis/HQI/PQRI: , Other - miscariage, ectopic preganancy Provider Diagnoses: . Threatened miscarriage. Discharge - Discharge Plan Condition: Stable Disposition: HOME Patient Education Materials: (ED), Threatened Miscarriage (ED) Referrals: Chester Abdi MD [Medical Doctor] - Additional Instructions: Please follow up with Dr. Abdi. Please also be aware of worsening or additional symptoms. Go to ED for these. The documentation as recorded by the Charisma mancuso Salem accurately reflects the service I personally performed and the decisions made by , Bolivar Black MD.
--- NOTE | 2016-11-05 11:21 | RAD ---
Indication: Pelvic cramping. Real-time sonography of the was performed. There is a single intrauterine gestation with a pole identified. movement is noted. heart activity is 165 bpm. Amniotic fluid index is within normal limits. The crown-rump length measures 3.7 cm corresponding to gestational age of 10 weeks 5 days. Gestational sac measures 5.0 cm corresponding to gestational age of 11 weeks 0 days. The composite gestational age is 10 weeks 6 days. Estimated date of delivery is May 28, 2017. Right ovary measures 4.1 x 2.1 x 2.4 cm. Left ovary measures 2.9 x 1.2 x 1.8 cm. IMPRESSION: Single intrauterine gestation with a gestational age of 10 weeks 6 days. Estimated date of delivery is May 28, 2017.
== END 2016-11-05 10:58 | disposition home or self-care (01) ==
LOC: UCEAST 08:14
DX: O20.0 Threatened abortion (principal); N83.11 Corpus luteum cyst of right ovary; Z3A.10 10 weeks gestation of pregnancy; Z88.5 Allergy status to narcotic agent; Z91.040 Latex allergy status; Z91.013 Allergy to seafood; Z91.048 Other nonmedicinal substance allergy status; F12.90 Cannabis use, unspecified, uncomplicated; F17.210 Nicotine dependence, cigarettes, uncomplicated
CPT/HCPCS: 36415; 76801; 81003; 84702; 87086; 99211; G0463

== ENCOUNTER 2017-01-02 13:31 | Emergency (ER) | payer OTHER ==
[2017-01-02] MEDS ORDERED: NS 0.9% 1000 ML* 1,000 ML IV ONE (15:39)
[2017-01-02 16:29] LABS: Hematocrit 39 % (35-47); Hemoglobin 13.1 g/dl (12.0-16.0); Mean Corpuscular HGB Conc 34 g/dl (31-36); Mean Corpuscular Hemoglobin 31 pg (27-31); Mean Corpuscular Volume 90 fL (80-97); Mean Platelet Volume 9 um3 (7.4-10.4); Red Blood Count 4.29 10^6/ul (4.0-5.4); Red Cell Distribution Width 14 % (10.5-15); White Blood Count 12.7 10^3/ul (3.5-10.8)
[2017-01-02 16:44] LABS: Albumin 3.6 g/dL (3.2-5.2); Calcium 8.9 mg/dL (8.6-10.3); EGFR African American 156.3 (>60); EGFR Non-African American 121.5 (>60); Potassium 3.8 mmol/L (3.5-5.0); Total Bilirubin 0.3 mg/dL (0.2-1.0); Total Protein 6.6 g/dL (6.4-8.9)
--- NOTE | 2017-01-02 17:28 | RAD ---
Indication: . Decreased movement. Real-time sonography of the was performed. Comparison is made with previous exam dated October 2016. There is a single intrauterine gestation in cephalic presentation. There is a posterior placenta without evidence of placenta previa. heart activity is noted. heart rate is 153 bpm. movement is identified. Amniotic fluid index is within normal limits. The cervix is long and closed. The BPD measures 4.1 cm corresponding to gestational age of 18 weeks 4 days. Head circumference measures 15.7 cm corresponding to gestational age of 18 weeks 5 days. Abdominal circumference measures 13.0 cm corresponding to gestational age of 18 weeks 4 days. Femur length measures 3.0 cm corresponding to gestational age of 19 weeks 1 day. Estimated gestational age is 18 weeks 4 days. This was determined by initial ultrasound. Estimated date of delivery at 257 g. IMPRESSION: Amniotic fluid appears to be within normal limits. There is a single intrauterine gestation with a gestational age of 18 weeks 4 days determined by initial ultrasound. Estimated weight is 257 g which is at the 59th percentile. heart activity and motion are noted.
[2017-01-02 17:37] LABS: Urine Bilirubin Negative (Negative); Urine Glucose Negative (Negative); Urine Nitrite Negative (Negative)
--- NOTE | 2017-01-02 17:52 | ED ---
Nova Harry Rebecca, scribed for Mansi Hernandez MD on 01/02/17 at 1540 . - HPI Summary HPI Summary: Pt is a 21 y/o F who is 19 weeks presents to ED c/o abd pain. At 2200 last night she went to roll over and had sudden onset umbilical abdominal pain with radiation to the lumbar back. Pain has been constant since onset and is currently ranked 8/10. Sx aggravated by walking, alleviated by nothing. Notes mild vaginal spotting last night and a small "wet spot" on her bed upon waking up. Denies dysuria. A1. Due date is 06/01/2017. - History of Current Complaint Chief Complaint: EDOBProblems Stated Complaint: 19WKS PREG/ABD-BACK PAIN Time Seen by Provider: 01/02/17 15:37 Hx Obtained From: Patient Chief Complaint: Pain Onset/Duration: Started Hours Ago, Still Present Timing: Constant Current Severity: Severe Pain Intensity: 8 Location of Pain: Radiates to: - Umbilical abdominal pain with radiation to the lumbar back Character: Sharp - At onset, not a constant "pain" Aggravating Factors: Movement - Walking Alleviating Factors: Nothing Associated Signs and Symptoms: Positive: Vaginal Bleeding or Discharge - Slight vaginal bleeding - spotting, Other: - slight "wet spot" on her bed upon waking up - Assessment Hx Now: Yes SAB: 0 IEA: 0 Hx Hysterectomy: No - Additional Pertinent History Primary Care Physician: [id number] Maternal Blood Type and Rh: O Positive - Allergies/Home Medications Allergies/Adverse Reactions: Allergies Allergy/AdvReac Type Severity Reaction Status Date / Time Fish Allergy Allergy Severe Swelling Verified 11/05/16 08:29 Of Face,Lips,& Throat Lactose Intolerance (GI) Allergy Intermediate Stomach Verified 11/05/16 08:29 Cramps Codeine Allergy Rash And Verified 11/05/16 08:29 Itching; "throat swelling" Latex Allergy Rash Verified 11/05/16 08:29 Venlafaxine [From Effexor] Allergy Hives; Verified 11/05/16 08:29 "throat swelling" adhesives Allergy Severe Rash And Uncoded 11/05/16 08:29 Itching shellfish Allergy Severe Swelling Uncoded 11/05/16 08:29 Of Face,Lips,& Throat PMH/Surg Hx/FS Hx/Imm Hx Endocrine/Hematology History: Reports: Hx Diabetes - 1 1/2 yrs ago gestational resolved, Hx Thyroid Disease Cardiovascular History: Denies: Hx Hypertension Respiratory History: Reports: Hx Seasonal Allergies Denies: Hx Asthma, Hx Chronic Obstructive Pulmonary Disease (COPD), Hx Sleep Apnea GI History: Reports: Other GI Disorders - hx bowel sx, working with PCP Denies: Hx Ulcer History: Reports: Hx Kidney Infection, Other Problems/Disorders - freq utis currently tx. PID Musculoskeletal History: Reports: Hx Arthritis Denies: Hx Back Problems, Hx Bursitis, Hx Congenital Bone Abnormalities, Hx Fibromyalgia, Hx Gout, Hx Orthopedic Injury, Hx Osteoporosis, Hx Scoliosis, Hx Tendonitis, Other Musculoskeletal History Neurological History: Reports: Hx Headaches, Hx Migraine Denies: Hx Dementia, Hx Developmental Delay, Other Neuro Impairments/ Disorders Psychiatric History: Reports: Hx Anxiety, Hx Depression, Hx Post Traumatic Stress Disorder, Hx Inpatient Treatment, Hx Community Mental Health Tx, Hx Substance Abuse, Other Psychiatric Issues/Disorders - borderline personality disorder, hallucinations Denies: Hx Eating Disorder, Hx of Violent Episodes Against Others - Surgical History Surgery Procedure, Year, and Place: Appendectomy Jun 2015 - Immunization History Date of Tetanus Vaccine: unknown Date of Influenza Vaccine: none Infectious Disease History: Denies: Hx Clostridium Difficile, Hx Hepatitis, Hx Human Immunodeficiency Virus (HIV), Hx of Known/Suspected MRSA, Hx Shingles, Hx Tuberculosis, Hx Known/ Suspected VRE, Hx Known/Suspected VRSA, History Other Infectious Disease, Traveled Outside the [place] in Last 30 Days - Family History Known Family History: Positive: Diabetes Negative: Other - [place] - Social History Lives: With Family Alcohol Use: None Hx Substance Use: Yes Substance Use Type: Reports: Marijuana Hx Tobacco Use: Yes Smoking Status (MU): Light Every Day Tobacco Smoker Type: Cigarettes Amount Used/How Often: 1/2 pack a day Length of Time of Smoking/Using Tobacco: 3 years Have You Smoked in the Last Year: Yes Review of Systems Negative: Fever Positive: Abdominal Pain - umbilical abd pain with radiation to the lumbar back Positive: other - Vaginal bleeding - spotting; small "wet spot" on her bed upon waking up. Negative: dysuria All Other Systems Reviewed And Are Negative: Yes Physical Exam - Summary Physical Exam Summary: General: Well appearing, no pain distress Skin: Warm, Skin Color Reflects Adequate Perfusion, Dry Eyes: EOMI, KENZIE ENT: Pharynx normal, TMs normal Neck: Supple, nontender Respiratory: CTA, breath sounds present, no rhonchi, no wheezes, no rales Cardiovascular: RRR, no murmur, no rub, no gallop Abdomen: Soft, nontender, Non-distended, no guarding, no rebound, uterus is about 3 finger breadths above the umbilicus Bowel: Present Musculoskeletal: TRAN, No edema, no CVA tenderness Neuro: Sensory/motor intact, A&Ox3, CN intact 2-12 Psych: Affect/mood appropriate - Physical Exam Triage Information Reviewed: Yes Vital Signs On Initial Exam: Initial Vitals Temp Pulse Resp BP Pulse Ox 97.3 F 108 18 101/68 97 01/02/17 13:36 01/02/17 13:36 01/02/17 13:36 01/02/17 13:36 01/02/17 13:36 Vital Signs Reviewed: Yes - Vaginal Assessment Presentation Comment: cervix still posterior Diagnostics - Vital Signs Vital Signs Temp Pulse Resp BP Pulse Ox 01/02/17 13:36 97.3 F 108 18 101/68 97 - Laboratory Lab Results: Lab Results 01/02/17 01/02/17 01/02/17 Range/Units 16:20 16:20 16:20 WBC 12.7 H (3.5-10.8) 10^3/ul RBC 4.29 (4.0-5.4) 10^6/ul Hgb 13.1 (12.0-16.0) g/dl Hct 39 (35-47) % MCV 90 (80-97) fL MCH 31 (27-31) pg MCHC 34 (31-36) g/dl RDW 14 (10.5-15) % Plt Count 155 (150-450) 10^3/ul MPV 9 (7.4-10.4) um3 Neut % (Auto) 74.0 (38-83) % Lymph % (Auto) 19.6 L (25-47) % Garza % (Auto) 5.7 (1-9) % Eos % (Auto) 0.5 (0-6) % Baso % (Auto) 0.2 (0-2) % Absolute Neuts (auto) 9.4 H (1.5-7.7) 10^3/ul Absolute Lymphs (auto) 2.5 (1.0-4.8) 10^3/ul Absolute Monos (auto) 0.7 (0-0.8) 10^3/ul Absolute Eos (auto) 0.1 (0-0.6) 10^3/ul Absolute Basos (auto) 0 (0-0.2) 10^3/ul Absolute Nucleated RBC 0.01 10^3/ul Nucleated RBC % 0.1 Sodium 134 (133-145) mmol/L Potassium 3.8 (3.5-5.0) mmol/L Chloride 104 (101-111) mmol/L Carbon Dioxide 21 L (22-32) mmol/L Anion Gap 9 (2-11) mmol/L BUN 13 (6-24) mg/dL Creatinine 0.62 (0.51-0.95) mg/dL Est GFR ( Amer) 156.3 (>60) Est GFR (Non-Af Amer) 121.5 (>60) BUN/Creatinine Ratio 21.0 H (8-20) Glucose 68 L (70-100) mg/dL Lactic Acid 0.9 (0.5-2.0) mmol/L Calcium 8.9 (8.6-10.3) mg/dL Total Bilirubin 0.30 (0.2-1.0) mg/dL AST 12 L (13-39) U/L ALT 7 (7-52) U/L Alkaline Phosphatase 52 (34-104) U/L Total Protein 6.6 (6.4-8.9) g/dL Albumin 3.6 (3.2-5.2) g/dL Globulin 3.0 (2-4) g/dL Albumin/Globulin Ratio 1.2 (1-3) Urine Color Urine Appearance Urine pH (5-9) Ur Specific [place] (1.010-1.030) Urine Protein (Negative) Urine Ketones (Negative) Urine Blood (Negative) Urine Nitrate (Negative) Urine Bilirubin (Negative) Urine Urobilinogen (Negative) Ur Leukocyte Esterase (Negative) Urine Glucose (Negative) 01/02/17 Range/Units 17:28 WBC (3.5-10.8) 10^3/ul RBC (4.0-5.4) 10^6/ul Hgb (12.0-16.0) g/dl Hct (35-47) % MCV (80-97) fL MCH (27-31) pg MCHC (31-36) g/dl RDW (10.5-15) % Plt Count (150-450) 10^3/ul MPV (7.4-10.4) um3 Neut % (Auto) (38-83) % Lymph % (Auto) (25-47) % Garza % (Auto) (1-9) % Eos % (Auto) (0-6) % Baso % (Auto) (0-2) % Absolute Neuts (auto) (1.5-7.7) 10^3/ul Absolute Lymphs (auto) (1.0-4.8) 10^3/ul Absolute Monos (auto) (0-0.8) 10^3/ul Absolute Eos (auto) (0-0.6) 10^3/ul Absolute Basos (auto) (0-0.2) 10^3/ul Absolute Nucleated RBC 10^3/ul Nucleated RBC % Sodium (133-145) mmol/L Potassium (3.5-5.0) mmol/L Chloride (101-111) mmol/L Carbon Dioxide (22-32) mmol/L Anion Gap (2-11) mmol/L BUN (6-24) mg/dL Creatinine (0.51-0.95) mg/dL Est GFR ( Amer) (>60) Est GFR (Non-Af Amer) (>60) BUN/Creatinine Ratio (8-20) Glucose (70-100) mg/dL Lactic Acid (0.5-2.0) mmol/L Calcium (8.6-10.3) mg/dL Total Bilirubin (0.2-1.0) mg/dL AST (13-39) U/L ALT (7-52) U/L Alkaline Phosphatase (34-104) U/L Total Protein (6.4-8.9) g/dL Albumin (3.2-5.2) g/dL Globulin (2-4) g/dL Albumin/Globulin Ratio (1-3) Urine Color Yellow Urine Appearance Cloudy Urine pH 5.0 (5-9) Ur Specific [place] 1.027 (1.010-1.030) Urine Protein Negative (Negative) Urine Ketones 1+ H (Negative) Urine Blood Negative (Negative) Urine Nitrate Negative (Negative) Urine Bilirubin Negative (Negative) Urine Urobilinogen Negative (Negative) Ur Leukocyte Esterase Negative (Negative) Urine Glucose Negative (Negative) Result Diagrams: 01/02/17 16:20 01/02/17 16:20 Lab Statement: Any lab studies that have been ordered have been reviewed, and results considered in the medical decision making process. - Ultrasound No standard instances Ultrasound Interpretation Completed By: Radiologist - US: Amniotic fluid appears to be within normal limits. There is a single intrauterine gestation with a gestational age of 18 weeks 4 days determined by initial ultrasound. Estimated weight is 257 g which is at the 59th percentile. heart activity and motion are noted. Re-Evaluation - Re-Evaluation First Eval Re-Evaluation Time: 17:50 Comment: Discussed US results and plan to D/C. Pt is doing well. Course/Dx - Course Course Of Treatment: 21 yo female with some fluid noted this am after rolling over and having pain in abd. exam very normal (pelvic deferred). U/S normal urine normal pt feeling better will take tylenol for discomfort - Diagnoses Provider Diagnoses: Pelvic pain Discharge - Discharge Plan Condition: Stable Disposition: HOME Patient Education Materials: Pelvic Pain in Women (ED) Referrals: Nanette Lucio MD [Primary Care Provider] - 3 Days The documentation as recorded by the Nova mancuso Rebecca accurately reflects the service I personally performed and the decisions made by me, Mansi Hernandez MD.
[2017-01-02 18:12] VITALS: BP 115/76
== END 2017-01-02 18:11 | disposition home or self-care (01) ==
LOC: ED 13:31
DX: O26.892 Other specified pregnancy related conditions, second trimester (principal); Z3A.19 19 weeks gestation of pregnancy; R10.2 Pelvic and perineal pain; M54.5 Low back pain; Z88.5 Allergy status to narcotic agent; Z88.8 Allergy status to other drugs, medicaments and biological substances
CPT/HCPCS: 36415; 76815; 80053; 81003; 83605; 85025; 99283

== ENCOUNTER 2017-01-09 11:36 | Emergency (ER) | payer OTHER ==
[2017-01-09 12:27] VITALS: BP 105/67
--- NOTE | 2017-01-09 13:01 | UC ---
Complaint Female HPI - HPI Summary HPI Summary: ONSET OF DYSURIA, FREQUENCY AND URGENCY YESTERDAY. HAS SOME RIGHT LOW BACK PAIN. NO FEVER. SLIGHT NAUSEA. PT IS 5 MONTHS . OB - DR. ABDI. - History Of Current Complaint Chief Complaint: UCGU Stated Complaint: LOWER BACK PAIN Time Seen by Provider: 01/09/17 12:53 Hx Obtained From: Patient Hx Last Menstrual Period: 08/05/16 Onset/Duration: Gradual Onset, Lasting Hours, Still Present Timing: Constant Severity Initially: Moderate Severity Currently: Moderate Pain Intensity: 10 - STATES 10/10 BUT SITTING IN ROOM IN NO DISTRESS Pain Scale Used: 0-10 Numeric Character: Burning Aggravating Factor(s): Urination Alleviating Factor(s): Nothing Associated Signs And Symptoms: Positive: Back Pain, Nausea - Allergies/Home Medications Allergies/Adverse Reactions: Allergies Allergy/AdvReac Type Severity Reaction Status Date / Time Fish Allergy Allergy Severe Swelling Verified 01/09/17 12:27 Of Face,Lips,& Throat Lactose Intolerance (GI) Allergy Intermediate Stomach Verified 01/09/17 12:27 Cramps Codeine Allergy Rash And Verified 01/09/17 12:27 Itching; "throat swelling" Latex Allergy Rash Verified 01/09/17 12:27 Venlafaxine [From Effexor] Allergy Hives; Verified 01/09/17 12:27 "throat swelling" adhesives Allergy Severe Rash And Uncoded 01/09/17 12:27 Itching shellfish Allergy Severe Swelling Uncoded 01/09/17 12:27 Of Face,Lips,& Throat PMH/Surg Hx/FS Hx/Imm Hx Endocrine History: Hypothyroidism Psychological History: Post Traumatic Stress Disorder Other Psychological History: BORDERLINE PERSONALITY - Surgical History Surgical History: Yes Surgery Procedure, Year, and Place: Appendectomy Jun 2015 - Family History Known Family History: Positive: Diabetes Negative: Other - [place] - Social History Alcohol Use: None Substance Use Type: None Substance Use Comment - Amount & Last Used: drug screen positive for marijauna Smoking Status (MU): Light Every Day Tobacco Smoker Type: Cigarettes Amount Used/How Often: 1/2 pack a day Length of Time of Smoking/Using Tobacco: 3 years Have You Smoked in the Last Year: Yes Household Exposure Type: Cigarettes - Immunization History Most Recent Influenza Vaccination: over five years ago Most Recent Tetanus Shot: utd Most Recent Pneumonia Vaccination: n/a Vaccination Up to Date: Yes Review of Systems Constitutional: Negative Respiratory: Negative Cardiovascular: Negative Gastrointestinal: Nausea Genitourinary: Dysuria, Frequency, Urgency All Other Systems Reviewed And Are Negative: Yes Physical Exam Triage Information Reviewed: Yes Appearance: Well-Appearing, No Pain Distress, Well-Nourished Vital Signs: Initial Vital Signs Temp 97.5 F 01/09/17 12:23 Pulse 83 01/09/17 12:23 Resp 18 01/09/17 12:23 BP 105/67 01/09/17 12:23 Pulse Ox 100 01/09/17 12:23 Vital Signs Reviewed: Yes Eyes: Positive: Conjunctiva Clear ENT: Positive: Hearing grossly normal Neck: Positive: Supple Respiratory: Positive: No respiratory distress, No accessory muscle use Cardiovascular: Positive: Pulses Normal Abdomen Description: Positive: Nontender, Soft, CVA Tenderness (R) - EQUIVOCAL, Other: - GRAVID. FHTs 140s. Negative: CVA Tenderness (L), Distended, Guarding Musculoskeletal: Positive: No Edema Neurological: Positive: Alert Psychological: Positive: Age Appropriate Behavior Skin: Negative: rashes Diagnostics - Laboratory Diagnostic Studies Completed/Ordered: URINE DIP SP. GR. 1.025, 2+ BLOOD, 2+ PROTEIN, TRACE LEUKS Complaint Female Dx - Differential Dx/Diagnosis Provider Diagnoses: UTI IN Discharge - Discharge Plan Condition: Stable Disposition: HOME Prescriptions: Nitrofurantoin Monohyd Macro [Macrobid] 100 mg PO BID #14 cap Phenazopyridine TAB* [Pyridium TAB*] 200 mg PO TID #6 tab Patient Education Materials: Urinary Tract Infection in (ED) Referrals: Nanette Lucio MD [Primary Care Provider] - If Needed Chester Abdi MD [Medical Doctor] - ( SCHEDULED)
== END 2017-01-09 13:13 | disposition home or self-care (01) ==
LOC: UCEAST 11:36
DX: O23.42 Unspecified infection of urinary tract in pregnancy, second trimester (principal); Z3A.20 20 weeks gestation of pregnancy
CPT/HCPCS: 81003; 87077; 87086; 87186; 99212; G0463

== ENCOUNTER 2017-05-25 08:22 | Inpatient (IN) | payer OTHER ==
[2017-05-25] MEDS ORDERED: Penicillin G Potassium IV* 5,000,000 UNITS in NS 0.9% 100 ML* 100 ML IVPB ONE (09:09)
[2017-05-25] MEDS ORDERED: Misoprostol TAB* 100 MCG VAGINAL ONE (09:09)
[2017-05-25] MEDS ORDERED: Buffered Lidocaine 0.9% SYRIN* 5 ML/SYR SYRINGE ONE (09:34)
[2017-05-25 10:32] LABS: ABS Basophils 0 10^3/ul (0-0.2); ABS Eosinophils 0.1 10^3/ul (0-0.6); ABS Monocytes 1.1 10^3/ul (0-0.8); ABS Neutrophils 8.7 10^3/ul (1.5-7.7); ABS Nucleated RBC 0 10^3/ul; Eosinophil % 0.4 % (0-6); Hematocrit 39 % (35-47); Lymphocyte % 23.1 % (25-47); Mean Corpuscular HGB Conc 34 g/dl (31-36); Mean Corpuscular Hemoglobin 30 pg (27-31); Mean Corpuscular Volume 88 fL (80-97); Mean Platelet Volume 10 um3 (7.4-10.4); Nucleated Red Blood Cells % 0; Platelet Count 148 10^3/ul (150-450); Red Blood Count 4.36 10^6/ul (4.0-5.4); Red Cell Distribution Width 14 % (10.5-15); White Blood Count 12.8 10^3/ul (3.5-10.8)
[2017-05-25] MEDS ORDERED: Acetaminophen TAB* 325 MG PO PRN (12:17)
[2017-05-25] MEDS ORDERED: Calcium Carbonate CHEW TAB* 500 MG (TUMS) ONE (12:22)
[2017-05-25] MEDS ORDERED: Acetaminophen TAB* 325 MG ONE (12:22)
[2017-05-25] MEDS: Calcium Carbonate CHEW TAB* 500 MG (TUMS) PO PRN ×2 (12:23→21:12)
[2017-05-25] MEDS: Penicillin G Potassium IV* 2,500,000 UNITS in NS 0.9% 100 ML* 100 ML IVPB SCH (14:16)
[2017-05-25] MEDS ORDERED: Dibucaine 1% 28.35 GM TUBE PR PRN (15:58)
[2017-05-25] MEDS ORDERED: Glycerin ADULT SUPP PR PRN (15:58)
[2017-05-25] MEDS ORDERED: Witch Hazel PAD* JAR TOPICAL PRN (15:58)
[2017-05-25] MEDS ORDERED: Tetan/Diph/Pertus SYR(Tdap)* 0.5 ML SYR(BOOSTRIX) use SYR IM ONE (15:58)
[2017-05-25] MEDS ORDERED: Varicella Virus Vaccine Live* 0.5 ML VIAL SUBCUT ONE (15:58)
[2017-05-25] MEDS: Ibuprofen TAB* 600 MG PO PRN (16:13)
[2017-05-25] MEDS ORDERED: Simethicone TAB* 80 MG TAB.CHEW PO SCH (17:30)
[2017-05-25] MEDS ORDERED: Oxytocin in LR* 20 UNITS/1,000 ML BAG IVPB ONE (17:48)
[2017-05-25] MEDS: Acetaminophen TAB* 325 MG PO PRN (18:53)
[2017-05-25] MEDS ORDERED: Oxytocin in LR* 20 UNITS/1,000 ML BAG IVPB SCH (19:00)
[2017-05-25] MEDS: Docusate CAP* 100 MG PO SCH (21:06)
[2017-05-25] MEDS: lamoTRIgine TAB(*) 100 MG PO SCH (21:06)
[2017-05-26] MEDS: Levothyroxine TAB* 25 MCG TAB PO SCH (05:37)
[2017-05-26] MEDS: Ibuprofen TAB* 600 MG PO PRN ×3 (05:37→18:31)
[2017-05-26] MEDS: Levothyroxine TAB* 100 MCG TAB PO SCH (05:38)
[2017-05-26] MEDS: Acetaminophen TAB* 325 MG PO PRN ×2 (06:14→20:56)
[2017-05-26 09:00] LABS: ABS Basophils 0 10^3/ul (0-0.2); ABS Eosinophils 0.1 10^3/ul (0-0.6); ABS Lymphocytes 2.5 10^3/ul (1.0-4.8); ABS Monocytes 0.7 10^3/ul (0-0.8); ABS Neutrophils 8.9 10^3/ul (1.5-7.7); ABS Nucleated RBC 0.01 10^3/ul; Eosinophil % 0.4 % (0-6); Hematocrit 35 % (35-47); Hemoglobin 11.8 g/dl (12.0-16.0); Lymphocyte % 20.5 % (25-47); Mean Corpuscular HGB Conc 34 g/dl (31-36); Mean Corpuscular Hemoglobin 30 pg (27-31); Mean Corpuscular Volume 89 fL (80-97); Mean Platelet Volume 9 um3 (7.4-10.4); Nucleated Red Blood Cells % 0.1; Platelet Count 123 10^3/ul (150-450); Red Blood Count 3.93 10^6/ul (4.0-5.4); Red Cell Distribution Width 14 % (10.5-15); White Blood Count 12.2 10^3/ul (3.5-10.8)
[2017-05-26] MEDS ORDERED: Ferrous Gluconate TAB* 324 MG TAB PO SCH (09:00)
[2017-05-26] MEDS: Docusate CAP* 100 MG PO SCH ×3 (09:02→20:56)
[2017-05-26] MEDS: lamoTRIgine TAB(*) 100 MG PO SCH ×2 (09:02→20:56)
[2017-05-27] MEDS: Ibuprofen TAB* 600 MG PO PRN ×3 (00:43→15:03)
[2017-05-27] MEDS: Levothyroxine TAB* 100 MCG TAB PO SCH (06:24)
[2017-05-27] MEDS: Levothyroxine TAB* 25 MCG TAB PO SCH (06:25)
[2017-05-27] MEDS: Acetaminophen TAB* 325 MG PO PRN (06:28)
[2017-05-27 08:14] VITALS: BP 112/72
[2017-05-27] MEDS: lamoTRIgine TAB(*) 100 MG PO SCH (09:04)
[2017-05-27] MEDS: Docusate CAP* 100 MG PO SCH ×2 (09:04→15:04)
[2017-05-27] MEDS: Penicillin G Potassium IV* 2,500,000 UNITS in NS 0.9% 100 ML* 100 ML IVPB SCH (12:49)
== END 2017-05-27 16:01 | disposition home or self-care (01) | DRG 560 ==
LOC: MCHOBOUT 08:22 → MCHOB 09:12
PROVIDERS: ADMIT Midwife; ATTEND Midwife
PROC: 3E0P7VZ Introduction of Hormone into Female Reproductive, Via Natural or Artificial Opening (ICD-10-PCS; principal; 2017-05-25)
PROC: 10907ZC Drainage of Amniotic Fluid, Therapeutic from Products of Conception, Via Natural or Artificial Opening (ICD-10-PCS; 2017-05-25)
PROC: 10E0XZZ Delivery of Products of Conception, External Approach (ICD-10-PCS; 2017-05-25)
PROC: 4A1HXCZ Monitoring of Products of Conception, Cardiac Rate, External Approach (ICD-10-PCS; 2017-05-25)
DX: O99.284 Endocrine, nutritional and metabolic diseases complicating childbirth (principal); O99.344 Other mental disorders complicating childbirth; E03.9 Hypothyroidism, unspecified; O99.824 Streptococcus B carrier state complicating childbirth; O69.2XX0 Labor and delivery complicated by other cord entanglement, with compression, not applicable or unspecified; O69.81X0 Labor and delivery complicated by cord around neck, without compression, not applicable or unspecified; O77.0 Labor and delivery complicated by meconium in amniotic fluid; O99.334 Smoking (tobacco) complicating childbirth; F17.200 Nicotine dependence, unspecified, uncomplicated; Z91.040 Latex allergy status; Z3A.39 39 weeks gestation of pregnancy; Z37.0 Single live birth; Z88.5 Allergy status to narcotic agent; Z91.011 Allergy to milk products; Z91.013 Allergy to seafood; Z91.048 Other nonmedicinal substance allergy status; Z88.8 Allergy status to other drugs, medicaments and biological substances
CPT/HCPCS: 36415; 85025; 86850; 86900; 86901; A9270-GY; J2540; S0191

== ENCOUNTER 2017-06-21 10:47 | Emergency (ER) | payer OTHER ==
--- NOTE | 2017-06-21 13:09 | UC ---
Eye Complaint HPI - HPI Summary HPI Summary: Patient presents with complaints of right upper eye lid swelling. She states it is slightly uncomfortable, but denies any injury, trauma, or change in her vision. She states that she woke up with it. She states she did buy some new mascara, but only the right eye is swollen. - History of Current Complaint Chief Complaint: UCEye Stated Complaint: SWOLLEN EYE Time Seen by Provider: 06/21/17 12:52 Hx Obtained From: Patient Hx Last Menstrual Period: 05/25/17 Onset/Duration: Gradual Onset Timing: Constant Severity Initially: Mild Severity Currently: Moderate Pain Intensity: 0 Location of Injury: Other - eye lid upper left Aggravating Factor(s): Blinking Alleviating Factor(s): Nothing Associated Signs And Symptoms: Positive: Negative - Risk Factors Penetrating Injury Risk Factor: Negative Acute Glaucoma Risk Factors: Negative - Allergies/Home Medications Allergies/Adverse Reactions: Allergies Allergy/AdvReac Type Severity Reaction Status Date / Time Fish Allergy Allergy Severe Swelling Verified 05/25/17 08:48 Of Face,Lips,& Throat Lactose Intolerance (GI) Allergy Intermediate Stomach Verified 05/25/17 08:48 Cramps Codeine Allergy Rash And Verified 06/21/17 11:22 Itching; "throat swelling" Latex Allergy Rash Verified 05/25/17 08:48 Venlafaxine [From Effexor] Allergy Hives; Verified 05/25/17 08:48 "throat swelling" adhesives Allergy Severe Rash And Uncoded 05/25/17 08:48 Itching shellfish Allergy Severe Swelling Uncoded 05/25/17 08:48 Of Face,Lips,& Throat Home Medications: Home Medications Sertraline HCl [Zoloft] 1 tab PO DAILY 06/21/17 [History Confirmed 06/21/17] PMH/Surg Hx/FS Hx/Imm Hx Previously Healthy: Yes - Surgical History Surgical History: Yes Surgery Procedure, Year, and Place: Appendectomy Jun 2015 - Family History Known Family History: Positive: Diabetes Negative: Other - [place] - Social History Occupation: Employed Full-time Lives: Alone Alcohol Use: Occasionally Substance Use Type: None Substance Use Comment - Amount & Last Used: drug screen positive for yasmineuna Smoking Status (MU): Light Every Day Tobacco Smoker Type: Cigarettes Amount Used/How Often: 5-7qd Length of Time of Smoking/Using Tobacco: 3 years Have You Smoked in the Last Year: Yes Household Exposure Type: Cigarettes - Immunization History Most Recent Influenza Vaccination: 03/26/17 Most Recent Tetanus Shot: utd Most Recent Pneumonia Vaccination: n/a Vaccination Up to Date: Yes Review of Systems Constitutional: Negative Skin: Negative Eyes: Negative ENT: Negative Respiratory: Negative Cardiovascular: Negative Gastrointestinal: Negative Genitourinary: Negative Motor: Negative Neurovascular: Negative Musculoskeletal: Negative Neurological: Negative Psychological: Negative Is Patient Immunocompromised?: No All Other Systems Reviewed And Are Negative: Yes Physical Exam Triage Information Reviewed: Yes Appearance: Well-Appearing Vital Signs: Initial Vital Signs Temp 98.1 F 06/21/17 11:17 Pulse 81 06/21/17 11:17 Resp 14 06/21/17 11:17 BP 101/67 06/21/17 11:17 Pulse Ox 100 06/21/17 11:17 Vital Signs Reviewed: Yes Eye Exam: Normal Eyes: Positive: Other: - left upper eye lid mildly erythmic, edematous with no obvious sty. no visual changes, or pain with movement of the eye lid. ENT Exam: Normal Dental Exam: Normal Neck exam: Normal Neck: Positive: 1 Respiratory Exam: Normal Cardiovascular Exam: Normal Abdominal Exam: Normal Musculoskeletal Exam: Normal Neurological Exam: Normal Psychological Exam: Normal Skin Exam: Normal Eye Complaint Course/Dx - Course Course Of Treatment: Patient presents with nontruamtic left swollen upper eye lid, no visual changes, or pain of eye with movement. She presents with what is most likely a swollen eye lid from rubbing it. I am going to RX sulfaceamine/ pred for three days and if her eye does not improve she will follow up with Dr. Gomes. - Differential Dx/Diagnosis Differential Diagnosis/HQI/PQRI: Other - eye lid swelling Provider Diagnoses: eye lid swelling Discharge - Discharge Plan Condition: Stable Disposition: HOME Prescriptions: Sulfacet/PrednisoLONE OPTH.SO* [Blephamide Opth.RAFITA*] 1 drop LEFT EYE Q4H #1 btl Patient Education Materials: Conjunctivitis (ED) Referrals: Nanette Lucio MD [Primary Care Provider] - David Gandara MD [Medical Doctor] -
[2017-06-21 14:06] VITALS: BP 105/64
== END 2017-06-21 13:15 | disposition home or self-care (01) ==
LOC: UCEAST 10:47
DX: H02.841 Edema of right upper eyelid (principal); Z91.011 Allergy to milk products; Z88.5 Allergy status to narcotic agent; Z91.013 Allergy to seafood; Z91.040 Latex allergy status; F17.210 Nicotine dependence, cigarettes, uncomplicated
CPT/HCPCS: 99212; G0463

== ENCOUNTER 2017-07-11 11:56 | Emergency (ER) | payer OTHER ==
[2017-07-11 13:17] LABS: ABS Basophils 0 10^3/ul (0-0.2); ABS Eosinophils 0.1 10^3/ul (0-0.6); ABS Lymphocytes 2.8 10^3/ul (1.0-4.8); ABS Monocytes 0.5 10^3/ul (0-0.8); ABS Neutrophils 2.9 10^3/ul (1.5-7.7); ABS Nucleated RBC 0 10^3/ul; Eosinophil % 1.8 % (0-6); Hematocrit 41 % (35-47); Hemoglobin 13.8 g/dl (12.0-16.0); Lymphocyte % 43.9 % (25-47); Mean Corpuscular HGB Conc 34 g/dl (31-36); Mean Corpuscular Hemoglobin 30 pg (27-31); Mean Corpuscular Volume 88 fL (80-97); Mean Platelet Volume 8 um3 (7.4-10.4); Nucleated Red Blood Cells % 0; Platelet Count 192 10^3/ul (150-450); Red Cell Distribution Width 14 % (10.5-15); White Blood Count 6.4 10^3/ul (3.5-10.8)
[2017-07-11 13:32] LABS: EGFR Non-African American 71.6 (>60)
[2017-07-11 13:50] LABS: INR 0.9 (0.77-1.02)
--- NOTE | 2017-07-11 14:05 | RAD ---
INDICATION: Vaginal bleeding status post delivery May 2017, evaluate for retained products of conception. COMPARISON: Comparison is made with a prior ultrasound from January 02, 2017. TECHNIQUE: Multiple real-time transvaginal images of the pelvis were obtained. FINDINGS: The uterus is retroverted and normal in size and shape. The uterus measured 7.7 x 4.8 x 7.1 cm. The endometrial echo measured 0.8 cm in thickness. The endometrium is heterogeneous. There is a small hypoechoic solid appearing area present in the fundal portion of the endometrial cavity centered toward the right side measuring 1.3 x 1.0 x 0.7 cm possibly representing retained products of conception. No increased vascularity is noted in this region. The right ovary measured 4.9 x 2.8 x 2.2 cm. The left ovary measured 2.8 x 1.6 x 3.4 cm. There is vascular flow within both ovaries. There is a trace amount of free intraperitoneal fluid adjacent to the fundus of the uterus. IMPRESSION: SMALL HYPOECHOIC AREA IN THE ENDOMETRIAL CAVITY POSSIBLY REPRESENTING RETAINED PRODUCTS OF CONCEPTION.
--- NOTE | 2017-07-11 15:11 | RAD ---
INDICATION: Cough and congestion. COMPARISON: Comparison is made with a prior study from September 09, 2015. TECHNIQUE: Dual-energy PA and lateral views of the chest were obtained. FINDINGS: The heart is within normal limits in size. Mediastinal and hilar contours appear within normal limits. The lungs are clear. No pleural effusion is present. IMPRESSION: NO EVIDENCE FOR ACTIVE CARDIOPULMONARY DISEASE.
[2017-07-11] MEDS ORDERED: NS 0.9% 1000 ML* 1,000 ML IV ONE (15:33)
[2017-07-11 16:45] VITALS: BP 109/56
[2017-07-11 16:46] LABS: Urine Appearance Cloudy; Urine Blood 3+ (Negative); Urine Color Yellow; Urine Ketones Negative (Negative); Urine Protein 1+(30 mg/dL) (Negative); Urine Specific Gravity 1.018 (1.010-1.030); Urine Urobilinogen Negative (Negative)
--- NOTE | 2017-07-11 21:18 | ED ---
Earl Harry Jason, scribed for Emelina Hernandes MD on 07/11/17 at 1316 . GI/ HPI - HPI Summary HPI Summary: This patient is a 21 year old F presenting to [facility] with a chief complaint of vaginal bleeding since 1 day ago. The patient states that she gave May 25, 2017 and experienced bleeding for 3 weeks which spontaneously resolved. Furthermore, she woke up 1 day ago and experienced large gushing blood flow once standing. The patient includes that she uses tampons and had a that lasted 1 hour 19 minutes. She states she has 2 babies and 1 miscarriage. The patient rates the pain 7/10 in severity. Symptoms aggravated by nothing. Symptoms alleviated by nothing. Patient reports congestion, difficulty breathing, and cramping abdominal pain, coughing and wheezing. - History of Current Complaint Chief Complaint: EDVaginalBleeding Time Seen by Provider: 07/11/17 12:38 Stated Complaint: VAGINAL BLEEDING Hx Obtained From: Patient Hx Last Menstrual Period: 05/25/17 Timing: Constant Pain Intensity: 7 Pain Characteristics: Cramping Associated Signs and Symptoms: Positive: Other: - congestion, difficulty breathing, and cramping abdominal pain. Aggravating Factor(s): Nothing Alleviating Factor(s): Nothing - Additional Pertinent History Primary Care Physician: [id number] - Allergy/Home Medications Allergies/Adverse Reactions: Allergies Allergy/AdvReac Type Severity Reaction Status Date / Time adhesive Allergy Rash And Verified 07/11/17 12:21 Itching codeine Allergy Swelling Verified 07/11/17 12:21 Of Face,Lips,& Throat Fish Containing Products Allergy Swelling Verified 07/11/17 12:21 Of Face,Lips,& Throat lactose Allergy Stomach Verified 07/11/17 12:21 Cramps latex Allergy Rash Verified 07/11/17 12:21 shellfish derived Allergy Swelling Verified 07/11/17 12:21 Of Face,Lips,& Throat venlafaxine Allergy Hives/Diff. Verified 07/11/17 12:21 Breathing/I tching adhesives Allergy Severe Rash And Uncoded 05/25/17 08:48 Itching shellfish Allergy Severe Swelling Uncoded 05/25/17 08:48 Of Face,Lips,& Throat PMH/Surg Hx/FS Hx/Imm Hx Previously Healthy: No Endocrine/Hematology History: Reports: Hx Diabetes - 1 1/2 yrs ago gestational resolved, Hx Thyroid Disease Cardiovascular History: Denies: Hx Hypertension Respiratory History: Reports: Hx Seasonal Allergies Denies: Hx Asthma, Hx Chronic Obstructive Pulmonary Disease (COPD), Hx Sleep Apnea GI History: Reports: Other GI Disorders - hx bowel sx, working with PCP Denies: Hx Ulcer History: Reports: Hx Kidney Infection, Other Problems/Disorders - freq utis currently tx. PID Musculoskeletal History: Reports: Hx Arthritis Denies: Hx Back Problems, Hx Bursitis, Hx Congenital Bone Abnormalities, Hx Fibromyalgia, Hx Gout, Hx Orthopedic Injury, Hx Osteoporosis, Hx Scoliosis, Hx Tendonitis, Other Musculoskeletal History Neurological History: Reports: Hx Headaches, Hx Migraine Denies: Hx Dementia, Hx Developmental Delay, Other Neuro Impairments/ Disorders Psychiatric History: Reports: Hx Anxiety, Hx Depression, Hx Post Traumatic Stress Disorder, Hx Inpatient Treatment, Hx Community Mental Health Tx, Hx Substance Abuse, Other Psychiatric Issues/Disorders - HX of multiple [facility] admissions for adjustment disorder. Denies: Hx Eating Disorder, Hx of Violent Episodes Against Others - Surgical History Surgery Procedure, Year, and Place: Appendectomy Jun 2015 - Immunization History Date of Tetanus Vaccine: unknown Date of Influenza Vaccine: none Infectious Disease History: No Infectious Disease History: Denies: Hx Clostridium Difficile, Hx Hepatitis, Hx Human Immunodeficiency Virus (HIV), Hx of Known/Suspected MRSA, Hx Shingles, Hx Tuberculosis, Hx Known/ Suspected VRE, Hx Known/Suspected VRSA, History Other Infectious Disease, Traveled Outside the [place] in Last 30 Days - Family History Known Family History: Positive: Diabetes Negative: Other - [place] - Social History Alcohol Use: Occasionally Hx Substance Use: Yes Substance Use Type: Reports: Marijuana Substance Use Comment - Amount & Last Used: drug screen positive for marijauna Hx Tobacco Use: Yes Smoking Status (MU): Light Every Day Tobacco Smoker Type: Cigarettes Amount Used/How Often: 5-7qd Length of Time of Smoking/Using Tobacco: 3 years Have You Smoked in the Last Year: Yes Review of Systems Positive: Other - nasal congestion Positive: Cough, Other - wheezing, difficulty breathing Positive: other - vaginal bleeding Positive: Other - cramping abdominal pain All Other Systems Reviewed And Are Negative: Yes Physical Exam - Summary Physical Exam Summary: Appearance: Ill-appearing, moderate pain distress, Well-nourished Skin: Warm, color reflects adequate perfusion Head: Normal Head/Face inspection Eyes: Conjunctiva clear ENT: Normal inspection Neck: Supple, no nodes, no JVD. Respiratory: Lungs clear, Normal breath sounds, no respiratory distress Cardio: RRR, No murmur, pulses normal, brisk capillary refill Abdomen: soft, Mild diffuse lower abdominal tenderness Bowel sounds: present Musculoskeletal: Strength Intact/ ROM intact. No calf tenderness. No edema. Neuro: Alert, muscle tone normal, facial symmetry, speech normal, sensory/motor intact Psychological: Normal pelvic exam: Triage Information Reviewed: Yes Vital Signs On Initial Exam: Initial Vitals Temp Pulse Resp BP Pulse Ox 97.4 F 70 20 119/69 97 07/11/17 12:02 07/11/17 12:02 07/11/17 12:02 07/11/17 12:02 07/11/17 12:02 Vital Signs Reviewed: Yes Diagnostics - Vital Signs Vital Signs Temp Pulse Resp BP Pulse Ox 07/11/17 12:30 60 109/60 95 07/11/17 12:26 60 96 07/11/17 12:24 111/65 07/11/17 12:02 97.4 F 70 20 119/69 97 - Laboratory Lab Results: Lab Results 07/11/17 07/11/17 07/11/17 Range/Units 12:00 12:00 12:00 WBC 6.4 (3.5-10.8) 10^3/ul RBC 4.60 (4.0-5.4) 10^6/ul Hgb 13.8 (12.0-16.0) g/dl Hct 41 (35-47) % MCV 88 (80-97) fL MCH 30 (27-31) pg MCHC 34 (31-36) g/dl RDW 14 (10.5-15) % Plt Count 192 (150-450) 10^3/ul MPV 8 (7.4-10.4) um3 Neut % (Auto) 45.3 (38-83) % Lymph % (Auto) 43.9 (25-47) % Reagan % (Auto) 8.6 (1-9) % Eos % (Auto) 1.8 (0-6) % Baso % (Auto) 0.4 (0-2) % Absolute Neuts (auto) 2.9 (1.5-7.7) 10^3/ul Absolute Lymphs (auto) 2.8 (1.0-4.8) 10^3/ul Absolute Monos (auto) 0.5 (0-0.8) 10^3/ul Absolute Eos (auto) 0.1 (0-0.6) 10^3/ul Absolute Basos (auto) 0 (0-0.2) 10^3/ul Absolute Nucleated RBC 0 10^3/ul Nucleated RBC % 0 INR (Anticoag Therapy) 0.90 (0.77-1.02) APTT 28.3 (26.0-36.3) seconds Sodium 136 (133-145) mmol/L Potassium 3.9 (3.5-5.0) mmol/L Chloride 108 (101-111) mmol/L Carbon Dioxide 22 (22-32) mmol/L Anion Gap 6 (2-11) mmol/L BUN 10 (6-24) mg/dL Creatinine 0.98 H (0.51-0.95) mg/dL Est GFR ( Amer) 92.1 (>60) Est GFR (Non-Af Amer) 71.6 (>60) BUN/Creatinine Ratio 10.2 (8-20) Glucose 80 (70-100) mg/dL Lactic Acid (0.5-2.0) mmol/L Calcium 9.2 (8.6-10.3) mg/dL Total Bilirubin 0.30 (0.2-1.0) mg/dL AST 16 (13-39) U/L ALT 12 (7-52) U/L Alkaline Phosphatase 66 (34-104) U/L Total Protein 6.7 (6.4-8.9) g/dL Albumin 3.8 (3.2-5.2) g/dL Globulin 2.9 (2-4) g/dL Albumin/Globulin Ratio 1.3 (1-3) Beta HCG, Quant < 0.60 mIU/mL Urine Color Urine Appearance Urine pH (5-9) Ur Specific [place] (1.010-1.030) Urine Protein (Negative) Urine Ketones (Negative) Urine Blood (Negative) Urine Nitrate (Negative) Urine Bilirubin (Negative) Urine Urobilinogen (Negative) Ur Leukocyte Esterase (Negative) Urine WBC (Auto) (Absent) Urine RBC (Auto) (Absent) Ur Squamous Epith Cells (Absent) Urine Bacteria (Absent) Urine Glucose (Negative) Influenza A (Rapid) (Negative) Influenza B (Rapid) (Negative) Blood Type Antibody Screen 07/11/17 07/11/17 07/11/17 Range/Units 12:00 12:00 13:49 WBC (3.5-10.8) 10^3/ul RBC (4.0-5.4) 10^6/ul Hgb (12.0-16.0) g/dl Hct (35-47) % MCV (80-97) fL MCH (27-31) pg MCHC (31-36) g/dl RDW (10.5-15) % Plt Count (150-450) 10^3/ul MPV (7.4-10.4) um3 Neut % (Auto) (38-83) % Lymph % (Auto) (25-47) % Reagan % (Auto) (1-9) % Eos % (Auto) (0-6) % Baso % (Auto) (0-2) % Absolute Neuts (auto) (1.5-7.7) 10^3/ul Absolute Lymphs (auto) (1.0-4.8) 10^3/ul Absolute Monos (auto) (0-0.8) 10^3/ul Absolute Eos (auto) (0-0.6) 10^3/ul Absolute Basos (auto) (0-0.2) 10^3/ul Absolute Nucleated RBC 10^3/ul Nucleated RBC % INR (Anticoag Therapy) (0.77-1.02) APTT (26.0-36.3) seconds Sodium (133-145) mmol/L Potassium (3.5-5.0) mmol/L Chloride (101-111) mmol/L Carbon Dioxide (22-32) mmol/L Anion Gap (2-11) mmol/L BUN (6-24) mg/dL Creatinine (0.51-0.95) mg/dL Est GFR ( Amer) (>60) Est GFR (Non-Af Amer) (>60) BUN/Creatinine Ratio (8-20) Glucose (70-100) mg/dL Lactic Acid 1.3 (0.5-2.0) mmol/L Calcium (8.6-10.3) mg/dL Total Bilirubin (0.2-1.0) mg/dL AST (13-39) U/L ALT (7-52) U/L Alkaline Phosphatase (34-104) U/L Total Protein (6.4-8.9) g/dL Albumin (3.2-5.2) g/dL Globulin (2-4) g/dL Albumin/Globulin Ratio (1-3) Beta HCG, Quant mIU/mL Urine Color Urine Appearance Urine pH (5-9) Ur Specific [place] (1.010-1.030) Urine Protein (Negative) Urine Ketones (Negative) Urine Blood (Negative) Urine Nitrate (Negative) Urine Bilirubin (Negative) Urine Urobilinogen (Negative) Ur Leukocyte Esterase (Negative) Urine WBC (Auto) (Absent) Urine RBC (Auto) (Absent) Ur Squamous Epith Cells (Absent) Urine Bacteria (Absent) Urine Glucose (Negative) Influenza A (Rapid) Negative (Negative) Influenza B (Rapid) Negative (Negative) Blood Type O Positive Antibody Screen Negative 07/11/17 Range/Units 15:45 WBC (3.5-10.8) 10^3/ul RBC (4.0-5.4) 10^6/ul Hgb (12.0-16.0) g/dl Hct (35-47) % MCV (80-97) fL MCH (27-31) pg MCHC (31-36) g/dl RDW (10.5-15) % Plt Count (150-450) 10^3/ul MPV (7.4-10.4) um3 Neut % (Auto) (38-83) % Lymph % (Auto) (25-47) % Reagan % (Auto) (1-9) % Eos % (Auto) (0-6) % Baso % (Auto) (0-2) % Absolute Neuts (auto) (1.5-7.7) 10^3/ul Absolute Lymphs (auto) (1.0-4.8) 10^3/ul Absolute Monos (auto) (0-0.8) 10^3/ul Absolute Eos (auto) (0-0.6) 10^3/ul Absolute Basos (auto) (0-0.2) 10^3/ul Absolute Nucleated RBC 10^3/ul Nucleated RBC % INR (Anticoag Therapy) (0.77-1.02) APTT (26.0-36.3) seconds Sodium (133-145) mmol/L Potassium (3.5-5.0) mmol/L Chloride (101-111) mmol/L Carbon Dioxide (22-32) mmol/L Anion Gap (2-11) mmol/L BUN (6-24) mg/dL Creatinine (0.51-0.95) mg/dL Est GFR ( Amer) (>60) Est GFR (Non-Af Amer) (>60) BUN/Creatinine Ratio (8-20) Glucose (70-100) mg/dL Lactic Acid (0.5-2.0) mmol/L Calcium (8.6-10.3) mg/dL Total Bilirubin (0.2-1.0) mg/dL AST (13-39) U/L ALT (7-52) U/L Alkaline Phosphatase (34-104) U/L Total Protein (6.4-8.9) g/dL Albumin (3.2-5.2) g/dL Globulin (2-4) g/dL Albumin/Globulin Ratio (1-3) Beta HCG, Quant mIU/mL Urine Color Yellow Urine Appearance Cloudy Urine pH 5.0 (5-9) Ur Specific [place] 1.018 (1.010-1.030) Urine Protein 1+(30 mg/dl) H (Negative) Urine Ketones Negative (Negative) Urine Blood 3+ H (Negative) Urine Nitrate Negative (Negative) Urine Bilirubin Negative (Negative) Urine Urobilinogen Negative (Negative) Ur Leukocyte Esterase Negative (Negative) Urine WBC (Auto) 3+(>20/hpf) H (Absent) Urine RBC (Auto) 3+(>10/hpf) H (Absent) Ur Squamous Epith Cells Present H (Absent) Urine Bacteria Absent (Absent) Urine Glucose Negative (Negative) Influenza A (Rapid) (Negative) Influenza B (Rapid) (Negative) Blood Type Antibody Screen Result Diagrams: 07/11/17 12:00 07/11/17 12:00 Lab Statement: Any lab studies that have been ordered have been reviewed, and results considered in the medical decision making process. - Radiology CXR Radiology Interpretation Completed By: Radiologist - NO EVIDENCE FOR ACTIVE CARDIOPULMONARY DISEASE. ED physician has reviewed this radiology report. - Additional Comments Diagnostic Additional Comments: Transvaginal ultrasound reveals SMALL HYPOECHOIC AREA IN THE ENDOMETRIAL CAVITY POSSIBLY REPRESENTING RETAINED PRODUCTS OF CONCEPTION. Re-Evaluation - Re-Evaluation First Eval Re-Evaluation Time: 14:30 Change: Improved Comment: Patient was informed of the negative influenza result and the transvaginal US results. She is resting comfortably in the stretcher. Second Eval Re-Evaluation Time: 15:30 Change: Unchanged Comment: The physician entered the room to perfom a pelvic exam. GIGU Course/Dx - Course Course Of Treatment: The patient is negative for influenza A and B. Dr. Hernandes consulted with Dr. Abdi (OBGYN), who reported that the patient's endometrial thickness is nornmal with normal hemoglobin and and normal vital signs. He is not concerned for emergency management and reccommended that she follow up with him next week. Medications reviewed. Allergies noted. Patient will be discharged with prescription and follow up with Dr. Abdi. The patient is agreeable with this plan. - Diagnoses Provider Diagnoses: Vaginal bleeding, Bronchitis, Dysfunctional uterine bleeding Discharge - Discharge Plan Condition: Stable Disposition: HOME Prescriptions: Albuterol HFA INHALER* [Ventolin HFA Inhaler*] 1 puff INH Q4H PRN #1 mdi PRN Reason: Wheezing Azithromycin TAB* [Zithromax TAB (Z-CURTIS) 250 mg #6 tabs] 2 tab PO .TODAY, THEN 1 DAILY #1 curtis Patient Education Materials: Dysfunctional Uterine Bleeding (ED), Acute Bronchitis (ED) Forms: *Work Release Referrals: Nanette Lucio MD [Primary Care Provider] - 2 Days Chester Abdi MD [Medical Doctor] - 1 Week Additional Instructions: Dr. Hernandes did not see the nuva ring on your exam today. You may replace it today. You should have definite follow up with Dr. Abdi in one week. Your blood test was negative today. Return to the ER if you have any new or worsening symptoms. The documentation as recorded by the Earl mancuso Jason accurately reflects the service I personally performed and the decisions made by me, Emelina Hernandes MD.
--- NOTE | 2017-07-13 09:02 | PN ---
Progress Note - Progress Note Date of Service: 07/13/17 Note: Patient vaginal culture positive for gardnerella. attempted to call patient and number unable to accept calls. spoke with dr bustillos who says that exam not concerning for gardnerella so will not treat at this time.
== END 2017-07-11 16:43 | disposition home or self-care (01) ==
LOC: ED 11:56
DX: N93.8 Other specified abnormal uterine and vaginal bleeding (principal); J40 Bronchitis, not specified as acute or chronic; R06.00 Dyspnea, unspecified; R10.30 Lower abdominal pain, unspecified; Z32.02 Encounter for pregnancy test, result negative; Z91.040 Latex allergy status; Z88.5 Allergy status to narcotic agent; Z91.013 Allergy to seafood; Z91.048 Other nonmedicinal substance allergy status; F17.210 Nicotine dependence, cigarettes, uncomplicated
CPT/HCPCS: 36415; 71046; 76830; 80053; 81003; 81015; 83605; 84702; 85025; 85610; 85730; 86850; 86900; 86901; 87480; 87491; 87502; 87510; 87591; 87661; 96360; 99284

== ENCOUNTER 2017-12-04 16:03 | Emergency (ER) | payer OTHER ==
--- NOTE | 2017-12-04 18:04 | ED ---
- HPI Summary HPI Summary: A 22 y/o female presents to ED c/o abdominal pain reaching 5-6/10 in severity. According to the patient, she is 5-weeks and when she took her test (home test) on 11/26/2017, her abdominal pain started. The abdominal pain are on both sides, bilateral lower quadrants. She denies any vaginal bleeding or any vaginal discharge, cough, CP, however has heartburn, dizziness and migraine headaches. It was noted that the patient was bleeding after her previous . No DNC or operation was done, however she was given more Oxytocin. She was advised to follow up and get checked out again, however never did. PMHx of appendectomy. FHx of cancer, thyroid issues, DM and heart issues. 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 She plans to stick with her current doctor. Blood type is O positive (+). Current allergies include codeine , latex, lactos, and adhesives. A1. LKMP was October 22 2017. She noted that she has slight pain during course. Current medications include 200 mg of Almagel and 175 micrograms of Levoxine. She has never had a ectopic as all were intrauterine. - History of Current Complaint Chief Complaint: EDAbdPain Stated Complaint: ABD PAIN/5 WKS PREG Time Seen by Provider: 12/04/17 17:49 Hx Obtained From: Patient Onset/Duration: Started Weeks Ago - October 27 2017, Still Present Timing: Constant Severity: Moderate Current Severity: Moderate Pain Intensity: 5 Location of Pain: Other: - Bilateral lower quadrants Character: None Aggravating Factors: Nothing Alleviating Factors: Nothing Associated Signs and Symptoms: Negative: Vaginal Bleeding or Discharge - Assessment Hx Now: Yes SAB: 1 IEA: 1 Hx Last Menstrual Period: 10/22/17 Hx Hysterectomy: No - Additional Pertinent History Primary Care Physician: [id number] Maternal Blood Type and Rh: O Positive - Allergies/Home Medications Allergies/Adverse Reactions: Allergies Allergy/AdvReac Type Severity Reaction Status Date / Time adhesive Allergy Rash And Verified 12/04/17 16:25 Itching codeine Allergy Swelling Verified 12/04/17 16:25 Of Face,Lips,& Throat Fish Containing Products Allergy Swelling Verified 12/04/17 16:25 Of Face,Lips,& Throat lactose Allergy Stomach Verified 12/04/17 16:25 Cramps latex Allergy Rash Verified 12/04/17 16:25 shellfish derived Allergy Swelling Verified 12/04/17 16:25 Of Face,Lips,& Throat venlafaxine Allergy Hives/Diff. Verified 12/04/17 16:25 Breathing/I tching adhesives Allergy Severe Rash And Uncoded 12/04/17 16:25 Itching shellfish Allergy Severe Swelling Uncoded 12/04/17 16:25 Of Face,Lips,& Throat Home Medications: Home Medications Multivitamin [Multivitamins] 1 tab PO DAILY 12/04/17 [History Confirmed 12/04/17 ] PMH/Surg Hx/FS Hx/Imm Hx Endocrine/Hematology History: Reports: Hx Diabetes - Gestational, resolved, Hx Thyroid Disease Cardiovascular History: Denies: Hx Hypertension Respiratory History: Reports: Hx Seasonal Allergies Denies: Hx Asthma, Hx Chronic Obstructive Pulmonary Disease (COPD), Hx Sleep Apnea GI History: Reports: Other GI Disorders - hx bowel sx, working with PCP Denies: Hx Ulcer History: Reports: Hx Kidney Infection, Other Problems/Disorders - freq utis, PID Musculoskeletal History: Reports: Hx Arthritis Denies: Hx Back Problems, Hx Bursitis, Hx Congenital Bone Abnormalities, Hx Fibromyalgia, Hx Gout, Hx Orthopedic Injury, Hx Osteoporosis, Hx Scoliosis, Hx Tendonitis, Other Musculoskeletal History Neurological History: Reports: Hx Headaches, Hx Migraine Denies: Hx Dementia, Hx Developmental Delay, Other Neuro Impairments/ Disorders Psychiatric History: Reports: Hx Anxiety, Hx Depression, Hx Post Traumatic Stress Disorder, Hx Inpatient Treatment, Hx Community Mental Health Tx, Hx Substance Abuse, Other Psychiatric Issues/Disorders - HX of multiple [facility] admissions for adjustment disorder. Denies: Hx Eating Disorder, Hx of Violent Episodes Against Others - Surgical History Surgery Procedure, Year, and Place: Appendectomy Jun 2015 - Immunization History Date of Tetanus Vaccine: unknown Date of Influenza Vaccine: none Infectious Disease History: No Infectious Disease History: Denies: Hx Clostridium Difficile, Hx Hepatitis, Hx Human Immunodeficiency Virus (HIV), Hx of Known/Suspected MRSA, Hx Shingles, Hx Tuberculosis, Hx Known/ Suspected VRE, Hx Known/Suspected VRSA, History Other Infectious Disease, Traveled Outside the [place] in Last 30 Days - Family History Known Family History: Positive: Diabetes Negative: Other - melida, cardiac issues, cancer, thyroid issues - Social History Alcohol Use: Occasionally Hx Substance Use: Yes Substance Use Type: Reports: Marijuana Substance Use Comment - Amount & Last Used: drug screen positive for vilma Hx Tobacco Use: Yes Smoking Status (MU): Light Every Day Tobacco Smoker Type: Cigarettes Amount Used/How Often: 5-7qd Length of Time of Smoking/Using Tobacco: 3 years Have You Smoked in the Last Year: Yes Review of Systems Positive: Other - POSTIVE: GERD. Negative: Fever Negative: Chest Pain Negative: Cough Positive: Abdominal Pain Negative: discharge, pain Neurological: Other - POSITIVE: Dizziness Positive: Headache - Migraine headache All Other Systems Reviewed And Are Negative: Yes Physical Exam - Summary Physical Exam Summary: Appearance: Well-appearing, minimal pain distress, well-nourished Skin: Warm, color reflects adequate perfusion, dry Head: Normal Head/Face inspection, atraumatic Eyes: Conjunctiva clear ENT: Normal inspection Neck: Supple, no nodes, no JVD Respiratory: Lungs clear, normal breath sounds, no respiratory distress Cardio: RRR, No murmur, pulses normal, brisk capillary refill Abdomen: Soft, minimal diffuse tenderness, no guarding, no rebound, no masses Bowel sounds: Present Musculoskeletal: Strength Intact/ROM intact, no calf tenderness, no edema. Psychological: Normal Neuro: Alert, muscle tone normal, no focal deficit - Physical Exam Triage Information Reviewed: Yes Vital Signs Reviewed: Yes - Vaginal Assessment Presentation Comment: cervix still posterior Diagnostics - Vital Signs Vital Signs Temp Pulse Resp BP Pulse Ox 12/04/17 16:16 98.3 F 100 16 122/72 98 - Laboratory Result Diagrams: 12/04/17 17:51 12/04/17 17:51 Lab Statement: Any lab studies that have been ordered have been reviewed, and results considered in the medical decision making process. - Ultrasound No standard instances Ultrasound Interpretation Completed By: Radiologist - TRANSVAGINAL US: No live intrauterine gestation or products of conception are visualized in this otherwise unremarkable pelvic ultrasound. Etiologies include a too early to detect, spontaneous or ectopic . Recommend clinical and sonographic follow-up including serial beta hCG. ED physician reviewed this radiology report. Course/Dx - Course Course Of Treatment: A 22 y/o female presents to ED c/o abdominal pain reaching 5-6/10 in severity. According to the patient, she is 5-weeks and when she took her test (home test) on 11/26/2017, her abdominal pain started. The abdominal pain are on both sides, bilateral lower quadrants. A transvaginal US revealed no live intrauterine gestation or products of conception are visualized in this otherwise unremarkable pelvic ultrasound. Etiologies include a too early to detect, spontaneous or ectopic . Recommend clinical and sonographic follow-up including serial beta hCG. In the ED course, patient recieved no medications. Pt medications reviewed this visit. Patient will be discharged with a diagnosis of ectopic , abdominal pain with and threatened miscarriage. Patient is follow up with PCP, Dr. Lucio, in 2 days. - Diagnoses Provider Diagnoses: Abdominal pain during , Ectopic , Threatened miscarriage Discharge - Sign-Out/Discharge Documenting (check all that apply): Patient Departure - DISCHARGE HOME - Discharge Plan Condition: Stable Disposition: HOME Patient Education Materials: Ectopic (DC), Threatened Miscarriage (ED ), Abdominal Pain in (ED) Forms: *Work Release Referrals: Nanette Lucio MD [Primary Care Provider] - Chester Abdi MD [Medical Doctor] - 12/06/17 (follow up abdominal pain, , serial HCG's.) Additional Instructions: We have given you a copy of your ultrasound and your labs. Your HCG was 476. We did not diagnose an ectopic or a miscarriage tonight, but we have given you those instructions, so that you know the things to watch for. You will need to have blood draws to check your HCG level every 2-[address] Abdi to notify him that you were in the ER with pain, and they will help you organize getting the blood draws and the follow up. Return to the ER if you have new or worsening symptoms. Your urine results and the lamictal level are still pending at the time you are discharged.
[2017-12-04 18:29] LABS: ABS Basophils 0 10^3/ul (0-0.2); ABS Eosinophils 0.1 10^3/ul (0-0.6); ABS Lymphocytes 2.6 10^3/ul (1.0-4.8); ABS Monocytes 0.5 10^3/ul (0-0.8); ABS Neutrophils 4.5 10^3/ul (1.5-7.7); ABS Nucleated RBC 0 10^3/ul; Eosinophil % 1.5 % (0-6); Hematocrit 37 % (35-47); Hemoglobin 12.8 g/dl (12.0-16.0); Lymphocyte % 33.6 % (25-47); Mean Corpuscular HGB Conc 34 g/dl (31-36); Mean Corpuscular Hemoglobin 30 pg (27-31); Mean Corpuscular Volume 86 fL (80-97); Mean Platelet Volume 8.6 um3 (7.4-10.4); Nucleated Red Blood Cells % 0.1; Platelet Count 195 10^3/ul (150-450); Red Blood Count 4.31 10^6/ul (4.00-5.40); Red Cell Distribution Width 13 % (10.5-15); White Blood Count 7.7 10^3/ul (3.5-10.8)
[2017-12-04 18:40] LABS: EGFR Non-African American 81.4 (>60)
--- NOTE | 2017-12-04 19:50 | RAD ---
HISTORY: Lower abdominal pain in a woman COMPARISONS: None from this . TECHNIQUE: Multiple transverse and longitudinal ultrasound images were obtained of the pelvis using grayscale, color flow, spectral and M-mode sonographic imaging. FINDINGS: UTERUS: The uterus is normal in shape, size, contour, and echotexture. GESTATION: There are no products of conception including a gestational sac or pole identified. CUL-DE-SAC: There is a small amount of free fluid in the cul-de-sac. RIGHT OVARY: The right ovary measures 3.6 x 3.4 x 2.9 cm. At the right ovary there is an echogenic avascular structure possibly the corpus luteum. LEFT OVARY: The left ovary measures 3.3 x 1.5 x 3.0 cm. IMPRESSION: No live intrauterine gestation or products of conception are visualized in this otherwise unremarkable pelvic ultrasound. Etiologies include a too early to detect, spontaneous or ectopic . Recommend clinical and sonographic follow-up including serial beta hCG.
[2017-12-04 22:24] VITALS: BP 145/84
[2017-12-04 22:39] LABS: Urine Appearance Cloudy; Urine Blood Negative (Negative); Urine Color Yellow; Urine Ketones Trace (Negative); Urine Protein Negative (Negative); Urine Red Blood Cell 1+(3-5/hpf) (Absent); Urine Specific Gravity 1.014 (1.010-1.030); Urine Urobilinogen Negative (Negative); Urine White Blood Cell Trace(0-5/hpf) (Absent)
--- NOTE | 2017-12-07 07:25 | ED ---
Progress - Progress Note Progress Note: Patient's preliminary urine culture reveals greater than 100,000 Escherichia coli. Patient presented to the ED and was diagnosed with possible ectopic . Will await final cultures. Course/Dx - Course Course Of Treatment: A 22 y/o female presents to ED c/o abdominal pain reaching 5-6/10 in severity. According to the patient, she is 5-weeks and when she took her test (home test) on 11/26/2017, her abdominal pain started. The abdominal pain are on both sides, bilateral lower quadrants. A transvaginal US revealed no live intrauterine gestation or products of conception are visualized in this otherwise unremarkable pelvic ultrasound. Etiologies include a too early to detect, spontaneous or ectopic . Recommend clinical and sonographic follow-up including serial beta hCG. In the ED course, patient recieved no medications. Pt medications reviewed this visit. Patient will be discharged with a diagnosis of ectopic , abdominal pain with and threatened miscarriage. Patient is follow up with PCP, Dr. Lucio, in 2 days. - Diagnoses Provider Diagnoses: Abdominal pain during , Ectopic , Threatened miscarriage Discharge - Sign-Out/Discharge Documenting (check all that apply): Post-Discharge Follow Up - Discharge Plan Condition: Stable Disposition: HOME Patient Education Materials: Ectopic (DC), Threatened Miscarriage (ED ), Abdominal Pain in (ED) Forms: *Work Release Referrals: Nanette Lucio MD [Primary Care Provider] - Chester Abdi MD [Medical Doctor] - 12/06/17 (follow up abdominal pain, , serial HCG's.) Additional Instructions: We have given you a copy of your ultrasound and your labs. Your HCG was 476. We did not diagnose an ectopic or a miscarriage tonight, but we have given you those instructions, so that you know the things to watch for. You will need to have blood draws to check your HCG level every 2-[address] Abid to notify him that you were in the ER with pain, and they will help you organize getting the blood draws and the follow up. Return to the ER if you have new or worsening symptoms. Your urine results and the lamictal level are still pending at the time you are discharged. - Billing Disposition and Condition Condition: STABLE Disposition: Home
== END 2017-12-04 22:28 | disposition home or self-care (01) ==
LOC: ED 16:03
DX: O00.90 Unspecified ectopic pregnancy without intrauterine pregnancy (principal); O20.0 Threatened abortion; Z3A.01 Less than 8 weeks gestation of pregnancy; O26.891 Other specified pregnancy related conditions, first trimester; R10.30 Lower abdominal pain, unspecified; O99.331 Smoking (tobacco) complicating pregnancy, first trimester; F17.210 Nicotine dependence, cigarettes, uncomplicated
CPT/HCPCS: 36415; 76817; 80053; 80175; 81003; 81015; 82150; 83690; 84443; 84702; 85025; 86900; 86901; 87077; 87086; 87186; 99282

== ENCOUNTER 2018-01-21 17:24 | Emergency (ER) | payer OTHER ==
[2018-01-21 19:25] VITALS: BP 117/67
--- NOTE | 2018-01-21 19:57 | RAD ---
EXAM: US First Trimester, Transabdominal CLINICAL HISTORY: 22 years old, female; Pain; complicated by abdominal or pelvic pain; Lower; First trimester; Gestational age or lmp: 11 weeks; ; Additional info: 11 weeks , cramping TECHNIQUE: Real-time transabdominal obstetrical ultrasound of the maternal pelvis and a first trimester with image documentation. COMPARISON: PREGLTD US PREG LIMITED 12/04/2017 7:12 PM FINDINGS: Gestation: There is a single intrauterine gestational sac containing a fetus and yolk sac. [place]-rump length of 4.9 cm corresponds to 11 weeks 5 days gestation. heart rate 150 bpm. Placenta/amniotic fluid: Cannot be adequately evaluated due to the early gestational age. Uterus/cervix: The cervix is closed measuring 4.4 cm in length. No myometrial mass. Ovaries: The right ovary measures 4.4 x 1.7 x 2.1 cm. Left ovary measures 3.4 x 1.1 x 2.9 cm. No mass. Free fluid: No free fluid. IMPRESSION: Single live IUP corresponding to 11 weeks 5 days gestation.
== END 2018-01-21 21:27 | disposition left against medical advice (07) ==
LOC: ED 17:24
DX: M54.5 Low back pain (principal); Z53.21 Procedure and treatment not carried out due to patient leaving prior to being seen by health care provider
CPT/HCPCS: 76801

== ENCOUNTER 2018-04-01 19:27 | Emergency (ER) | payer OTHER ==
[2018-04-01] MEDS ORDERED: Acetaminophen TAB* 325 MG PO ONE (22:19)
--- NOTE | 2018-04-01 22:27 | ED ---
- HPI Summary HPI Summary: This patient is a 22 year old F presenting to [facility] accompanied by friend with a chief complaint of abdominal cramping and pain that began yesterday. Patient is currently . The patient rates the pain 7/10 in severity. Symptoms aggravated by nothing. Symptoms alleviated by nothing. Patient reports diarrhea. Patient reports that she was recently diagnosed with placenta previa. - History of Current Complaint Chief Complaint: EDOBProblems Stated Complaint: 21 WKS PREG/BACK AND GROIN PAIN Time Seen by Provider: 04/01/18 22:05 Hx Obtained From: Patient Chief Complaint: Pain Onset/Duration: Started Hours Ago, Atraumatic, Still Present Timing: Constant Severity: Moderate Current Severity: Moderate Pain Intensity: 7 Character: Cramping Aggravating Factors: Nothing Alleviating Factors: Nothing Associated Signs and Symptoms: Positive: Other: - Diarrhea - Assessment Hx Now: Yes SAB: 1 IEA: 1 Hx Last Menstrual Period: 10/22/17 Hx Hysterectomy: No - Additional Pertinent History Primary Care Physician: [id number] Maternal Blood Type and Rh: O Positive - Allergies/Home Medications Allergies/Adverse Reactions: Allergies Allergy/AdvReac Type Severity Reaction Status Date / Time adhesive Allergy Rash And Verified 01/21/18 17:30 Itching codeine Allergy Swelling Verified 01/21/18 17:30 Of Face,Lips,& Throat Fish Containing Products Allergy Swelling Verified 01/21/18 17:30 Of Face,Lips,& Throat lactose Allergy Stomach Verified 01/21/18 17:30 Cramps latex Allergy Rash Verified 01/21/18 17:30 venlafaxine Allergy Hives/Diff. Verified 01/21/18 17:30 Breathing/I tching shellfish Allergy Severe Swelling Uncoded 01/21/18 17:30 Of Face,Lips,& Throat PMH/Surg Hx/FS Hx/Imm Hx Previously Healthy: No Endocrine/Hematology History: Reports: Hx Diabetes - Gestational, resolved, Hx Thyroid Disease Cardiovascular History: Denies: Hx Hypertension Respiratory History: Reports: Hx Seasonal Allergies Denies: Hx Asthma, Hx Chronic Obstructive Pulmonary Disease (COPD), Hx Sleep Apnea GI History: Reports: Other GI Disorders - hx bowel sx, working with PCP Denies: Hx Ulcer History: Reports: Hx Kidney Infection, Other Problems/Disorders - freq utis, PID Musculoskeletal History: Reports: Hx Arthritis Denies: Hx Back Problems, Hx Bursitis, Hx Congenital Bone Abnormalities, Hx Fibromyalgia, Hx Gout, Hx Orthopedic Injury, Hx Osteoporosis, Hx Scoliosis, Hx Tendonitis, Other Musculoskeletal History Neurological History: Reports: Hx Headaches, Hx Migraine Denies: Hx Dementia, Hx Developmental Delay, Other Neuro Impairments/ Disorders Psychiatric History: Reports: Hx Anxiety, Hx Depression, Hx Post Traumatic Stress Disorder, Hx Inpatient Treatment, Hx Community Mental Health Tx, Hx Substance Abuse, Other Psychiatric Issues/Disorders - HX of multiple [facility] admissions for adjustment disorder. Denies: Hx Eating Disorder, Hx of Violent Episodes Against Others - Surgical History Surgery Procedure, Year, and Place: Appendectomy Jun 2015 - Immunization History Date of Tetanus Vaccine: unknown Date of Influenza Vaccine: none Infectious Disease History: No Infectious Disease History: Denies: Hx Clostridium Difficile, Hx Hepatitis, Hx Human Immunodeficiency Virus (HIV), Hx of Known/Suspected MRSA, Hx Shingles, Hx Tuberculosis, Hx Known/ Suspected VRE, Hx Known/Suspected VRSA, History Other Infectious Disease, Traveled Outside the [place] in Last 30 Days - Family History Known Family History: Positive: Diabetes Negative: Other - melida, cardiac issues, cancer, thyroid issues - Social History Occupation: Employed Full-time Lives: With Family Alcohol Use: Occasionally Hx Substance Use: Yes Substance Use Type: Reports: Marijuana Substance Use Comment - Amount & Last Used: drug screen positive for marijauna Hx Tobacco Use: Yes Smoking Status (MU): Light Every Day Tobacco Smoker Type: Cigarettes Amount Used/How Often: 5-7qd Length of Time of Smoking/Using Tobacco: 3 years Have You Smoked in the Last Year: Yes Review of Systems Negative: Fever Positive: Abdominal Pain, Diarrhea All Other Systems Reviewed And Are Negative: Yes Physical Exam - Summary Physical Exam Summary: VITAL SIGNS: Reviewed. GENERAL: Patient is a well-developed and nourished female who is lying comfortable in the stretcher. Patient is not in any acute respiratory distress. HEAD AND FACE: No signs of trauma. No ecchymosis, hematomas or skull depressions. No sinus tenderness. EYES: PERRLA, EOMI x 2, No injected conjunctiva, no nystagmus. EARS: Hearing grossly intact. Ear canals and tympanic membranes are within normal limits. MOUTH: Oropharynx within normal limits. NECK: Supple, trachea is midline, no adenopathy, no JVD, no carotid bruit, no c- spine tenderness, neck with full ROM. CHEST: Symmetric, no tenderness at palpation LUNGS: Clear to auscultation bilaterally. No wheezing or crackles. CVS: Regular rate and rhythm, S1 and S2 present, no murmurs or gallops appreciated. ABDOMEN: Soft. Pelvic tenderness. No signs of distention. No rebound no guarding , and no masses palpated. Bowel sounds are normal. EXTREMITIES: FROM in all major joints, no edema, no cyanosis or clubbing. NEURO: Alert and oriented x 3. No acute neurological deficits. Speech is normal and follows commands. SKIN: Dry and warm - Physical Exam Triage Information Reviewed: Yes Vital Signs Reviewed: Yes - Vaginal Assessment Presentation Comment: cervix still posterior Diagnostics - Vital Signs Vital Signs Temp Pulse Resp BP Pulse Ox 04/01/18 19:46 97.2 F 96 20 103/65 99 - Laboratory Lab Statement: Any lab studies that have been ordered have been reviewed, and results considered in the medical decision making process. - Additional Comments Diagnostic Additional Comments: US reveals, per radiologist, 1. Cervix measures 4.7 cm and is closed. Placenta is anterior and not low-lying. 2. Single live fetus of 21 weeks with normal interval growth. 3. Normal amniotic fluid. ED physician has reviewed this radiology report. Course/Dx - Course Course Of Treatment: This patient is a 22 year old F presenting to [facility] accompanied by friend with a chief complaint of abdominal cramping and pain that began yesterday. Physical Exam Findings: Pelvic tenderness. US reveals, per radiologist, 1. Cervix measures 4.7 cm and is closed. Placenta is anterior and not low-lying. 2. Single live fetus of 21 weeks with normal interval growth. 3. Normal amniotic fluid. UA obtained. In the ED course the patient was given acetaminophen. Patient will be discharged with follow up from her HAND COMPOSITOR. The patient is agreeable with this plan. - Diagnoses Provider Diagnoses: Pelvic pain Discharge - Sign-Out/Discharge Documenting (check all that apply): Patient Departure - Discharge home - Discharge Plan Condition: Stable Disposition: HOME Patient Education Materials: Pelvic Pain in Women (ED) Referrals: Manjit Burger DO [Primary Care Provider] - 3 Days Additional Instructions: FOLLOW UP WITH YOUR HAND COMPOSITOR ON Wednesday04/04/2018. RETURN TO THE EMERGENCY DEPARTMENT FOR NEW OR WORSENING SYMPTOMS - Attestation Statements Document Initiated by Scribe: Yes Documenting Scribe: Hui Jacobs Provider For Whom Scribe is Documenting (Include Credential): Dr. Brandon Reynolds MD Scribe Attestation: I, Hui Jacobs, scribed for Dr. Brandon Reynolds MD on 04/01/18 at 2346.
[2018-04-01 23:07] LABS: Urine Appearance Cloudy; Urine Blood Negative (Negative); Urine Color Yellow; Urine Ketones Trace (Negative); Urine Protein Negative (Negative); Urine Red Blood Cell Absent (Absent); Urine Specific Gravity 1.029 (1.010-1.030); Urine Urobilinogen Negative (Negative); Urine White Blood Cell Trace(0-5/hpf) (Absent)
[2018-04-01 23:32] VITALS: BP 90/55
== END 2018-04-02 00:04 | disposition home or self-care (01) ==
LOC: ED 19:27
DX: R10.2 Pelvic and perineal pain (principal); Z34.92 Encounter for supervision of normal pregnancy, unspecified, second trimester; F17.210 Nicotine dependence, cigarettes, uncomplicated; R19.7 Diarrhea, unspecified
CPT/HCPCS: 76815; 81003; 81015; 87086; 99282; A9270-GY

== ENCOUNTER 2018-08-03 13:34 | Inpatient (IN) | payer OTHER ==
[2018-08-03] MEDS ORDERED: Buffered Lidocaine 1% SYRIN* 1 ML/SYRINGE INTRADERM ONE (17:46)
[2018-08-03] MEDS ORDERED: Lactated Ringers 1000 ML Bag* 1,000 ML IV ONE ×2 (17:46→21:00)
[2018-08-03] MEDS ORDERED: Acetaminophen TAB* 325 MG PO PRN (17:48)
[2018-08-03] MEDS ORDERED: Lactated Ringers 1000 ML Bag* 1,000 ML IV SCH ×3 (18:00→23:45)
--- NOTE | 2018-08-03 19:39 | HP ---
General Information - Reason for Visit preeclampsia, 38w6d EGA, induction of labor - General Information Maternal Age: 23 Grav: 4 Para: 2 SAB: 1 IEA: 0 Estimated Due Date: 08/11/18 Determined By: LMP Maternal Blood Type and Rh: O Positive - Results this Serology/RPR Result: Non-Reactive Rubella Result: Immune HBsAg Result: Negative HIV Result: Negative GBS Culture Result: Negative Past Medical History Delivery History: Hx Uncomplicated Vaginal Delivery Delivery History Comment: precipitous Pertinent Past Medical History: See Records - melida's, PTSD, schitzo effective disorder bipolar type, migraines, benign heart murmur, gestational diabetes, history of UTIs, asthma Pertinent Past Surgical History: None Pertinent Family History: See Records - DM, psych, Von Willebrand's Review of Systems Constitutional: Comfortable CV Complaint: No Respiratory: Shortness of Breath: No Gastrointestinal: No Nausea/Vomiting, Normal Bowel Movement Genitourinary: No Dysuria, No Bleeding, No Leaking Fluid Musculoskeletal: No Complaint Neurological: No Visual Changes, Headache Movement: Normal Exam Allergies/Adverse Reactions: Allergies adhesive Allergy (Verified 08/03/18 15:54) Rash And Itching codeine Allergy (Verified 08/03/18 15:54) Swelling Of Face,Lips,& Throat Fish Containing Products Allergy (Verified 08/03/18 15:54) Swelling Of Face,Lips,& Throat lactose Allergy (Verified 08/03/18 15:54) Stomach Cramps latex Allergy (Verified 08/03/18 15:54) Rash venlafaxine Allergy (Verified 08/03/18 15:54) Hives/Diff.Breathing/Itching shellfish Allergy (Severe, Uncoded 08/03/18 15:54) Swelling Of Face,Lips,& Throat Lab Values - Entire Visit: 24 hr urine: 320., CBC/ CMP: WNL - Measurements Height: 5 ft 7 in Weight: 268 lb Weight in lbs: [phone] Body Mass Index (BMI): 42.0 Pre- Weight: 229 lb Weight Gained This : 39 lbs and 0 ozs - Exam Breast: Breast Exam Deferred CVA: No CVA Tenderness Extremities: No Edema Heart: Normal Rhythm/Heart Sounds HEENT: No Significant Findings Lungs: Clear Bilaterally Rectal: Rectal Exam Deferred Reflexes: DTR 2+ Thyroid: No Thyromegaly - Abdominal Exam Abdomen Exam: Fundal Height Consistent with Dates - Ultrasound/Biophysical Profile Ultrasound Status: Not Done Targeted Exam Findings Estimated Weight: 8lbs Cervical Exam: 4cm Effacement: 80% Station: -1 Presenting Part: Vertex Membrane Status: Intact Bleeding/Discharge: None EFM Findings - External Monitor Findings Baseline Heart Rate: 135 External Monitor Findings: Accelerations Present, No Pattern of Variable or Late Decelerations, Variability Moderate, Baseline Stable Contractions: None Assessment/Plan - Assessment 23 y.o. , 38w6d EGA, mild preeclampsia, diet controlled gestational diabetes, hypothyroidism - Obstetrical Risk Factors Obstetrical Risk Factors: PreEclampsia, Diabetes - gestational diabetes diet controlled, Tobacco Use, Psychiatric Issues - Plan Plan: Induction, Admit - Anticipate Vaginal Delivery - Date/Time of Admission Date of Admission: 08/03/18 Time of Admission: 18:00
[2018-08-03] MEDS ORDERED: BuPROPion XL* 150 MG TAB.XL PO SCH (20:00)
[2018-08-03] MEDS ORDERED: Lamotrigine XR (NF) 100 MG TAB PO SCH (20:00)
[2018-08-03 20:08] LABS: ABS Basophils 0 10^3/ul (0-0.2); ABS Eosinophils 0.1 10^3/ul (0-0.6); ABS Monocytes 0.8 10^3/ul (0-0.8); ABS Neutrophils 8.1 10^3/ul (1.5-7.7); ABS Nucleated RBC 0 10^3/ul; Eosinophil % 0.6 %; Hematocrit 37 % (35-47); Hemoglobin 12.4 g/dl (12.0-16.0); Lymphocyte % 18.2 %; Mean Corpuscular HGB Conc 34 g/dl (31-36); Mean Corpuscular Hemoglobin 30 pg (27-31); Mean Corpuscular Volume 89 fL (80-97); Mean Platelet Volume 10.7 fL (7.4-10.4); Nucleated Red Blood Cells % 0; Platelet Count 155 10^3/ul (150-450); Red Blood Count 4.09 10^6/ul (4.00-5.40); Red Cell Distribution Width 13 % (10.5-15)
[2018-08-03] MEDS ORDERED: OBEPIDURAL* 250 ML EPIDURAL ONE (20:14)
[2018-08-03] MEDS ORDERED: OBEPIDURAL* 250 ML EPIDURAL SCH (21:00)
[2018-08-03] MEDS ORDERED: Sodium Citrate/Citric Acid* 15 ML UDC PO PRN (21:00)
[2018-08-03] MEDS ORDERED: Phenylephrine IV* 40 MCG/ML 10 ML SYRINGE IV PUSH PRN ×2 (21:00)
[2018-08-03] MEDS ORDERED: Dibucaine 1% 28.35 GM TUBE PR PRN (23:35)
[2018-08-03] MEDS ORDERED: Glycerin ADULT SUPP PR PRN (23:35)
[2018-08-03] MEDS ORDERED: Witch Hazel PAD* JAR TOPICAL PRN (23:35)
[2018-08-03] MEDS ORDERED: Nicotine Inhaler* 10 MG AMP INH PRN (23:37)
--- NOTE | 2018-08-03 23:39 | PROCNOTE ---
[facility] OB: Delivery Note - Delivery A Date of : 08/03/18 Time of : 23:21 Sex: Male Score 1 Minute: 9 Score 5 Minutes: 9 Gestational Age in Weeks and Days at Delivery: 38 Weeks and 6 Days Delivery Method: Spontaneous Vaginal Labor: Induced Estimated Blood Loss: 200 Anesthesia/Analgesia: CEI for Labor Delivered By: Jennifer Richardson - Nursery Level of Nursery: Regular/Bedside - Perineum Perineal Injury: None/Intact Perineal Repair: None - Additional Delivery Notes Additional Delivery Notes: nuchal cord x 1 easily reduced
[2018-08-04] MEDS: lamoTRIgine TAB(*) 100 MG PO SCH ×3 (00:55→21:17)
[2018-08-04] MEDS: Ibuprofen TAB* 600 MG PO PRN ×4 (01:49→22:42)
[2018-08-04 07:47] LABS: ABS Basophils 0 10^3/ul (0-0.2); ABS Eosinophils 0.1 10^3/ul (0-0.6); ABS Monocytes 0.8 10^3/ul (0-0.8); ABS Neutrophils 7.6 10^3/ul (1.5-7.7); ABS Nucleated RBC 0 10^3/ul; Eosinophil % 0.7 %; Hematocrit 33 % (35-47); Hemoglobin 11.4 g/dl (12.0-16.0); Lymphocyte % 18.9 %; Mean Corpuscular HGB Conc 35 g/dl (31-36); Mean Corpuscular Hemoglobin 31 pg (27-31); Mean Corpuscular Volume 88 fL (80-97); Mean Platelet Volume 9.8 fL (7.4-10.4); Nucleated Red Blood Cells % 0; Platelet Count 105 10^3/ul (150-450); Red Blood Count 3.73 10^6/ul (4.00-5.40); Red Cell Distribution Width 13 % (10.5-15); White Blood Count 10.4 10^3/ul (3.5-10.8)
[2018-08-04] MEDS: BuPROPion XL* 150 MG TAB.XL PO SCH (08:20)
[2018-08-04] MEDS: Docusate CAP* 100 MG PO SCH ×3 (08:20→21:17)
[2018-08-04] MEDS ORDERED: Simethicone TAB* 80 MG TAB.CHEW PO SCH (08:30)
[2018-08-04] MEDS ORDERED: Ferrous Gluconate TAB* 324 MG TAB PO SCH (09:00)
[2018-08-04] MEDS: Acetaminophen TAB* 325 MG PO PRN ×2 (14:05→19:47)
[2018-08-05] MEDS: Acetaminophen TAB* 325 MG PO PRN (03:55)
[2018-08-05 08:59] VITALS: BP 132/76
[2018-08-05] MEDS: lamoTRIgine TAB(*) 100 MG PO SCH (09:43)
[2018-08-05] MEDS: BuPROPion XL* 150 MG TAB.XL PO SCH (09:43)
[2018-08-05] MEDS: Ibuprofen TAB* 600 MG PO PRN (09:44)
[2018-08-05] MEDS: Docusate CAP* 100 MG PO SCH (09:44)
== END 2018-08-05 13:32 | disposition home or self-care (01) | DRG 560 ==
LOC: MCHOBOUT 13:34 → MCHOB 17:41
PROVIDERS: ADMIT Midwife; ATTEND Midwife
PROC: 10E0XZZ Delivery of Products of Conception, External Approach (ICD-10-PCS; principal; 2018-08-03)
PROC: 3E033VJ Introduction of Other Hormone into Peripheral Vein, Percutaneous Approach (ICD-10-PCS; 2018-08-03)
PROC: 10907ZC Drainage of Amniotic Fluid, Therapeutic from Products of Conception, Via Natural or Artificial Opening (ICD-10-PCS; 2018-08-03)
DX: O14.04 Mild to moderate pre-eclampsia, complicating childbirth (principal); Z37.0 Single live birth; O24.420 Gestational diabetes mellitus in childbirth, diet controlled; O99.344 Other mental disorders complicating childbirth; F25.0 Schizoaffective disorder, bipolar type; F43.10 Post-traumatic stress disorder, unspecified; F60.3 Borderline personality disorder; O99.284 Endocrine, nutritional and metabolic diseases complicating childbirth; E03.9 Hypothyroidism, unspecified; O99.52 Diseases of the respiratory system complicating childbirth; O69.81X0 Labor and delivery complicated by cord around neck, without compression, not applicable or unspecified; O99.334 Smoking (tobacco) complicating childbirth; F17.210 Nicotine dependence, cigarettes, uncomplicated; Z3A.38 38 weeks gestation of pregnancy
CPT/HCPCS: 36415; 85025; 86850; 86900; 86901; A9270-GY

== ENCOUNTER 2018-12-14 21:13 | Emergency (ER) | payer OTHER ==
[2018-12-14 22:34] LABS: Urine Appearance Cloudy; Urine Bacteria Absent (Absent); Urine Bilirubin Negative (Negative); Urine Blood 3+ (Negative); Urine Color Yellow; Urine Glucose Negative (Negative); Urine Ketones Negative (Negative); Urine Nitrite Negative (Negative); Urine Protein Negative (Negative); Urine Red Blood Cell 3+(>10/hpf) (Absent); Urine Specific Gravity 1.026 (1.010-1.030); Urine Squamous Epithelial Cell Present (Absent); Urine Urobilinogen Negative (Negative); Urine White Blood Cell 1+(6-10/hpf) (Absent)
[2018-12-14 22:38] LABS: ABS Eosinophils 0.2 10^3/ul (0-0.6); ABS Lymphocytes 3.3 10^3/ul (1.0-4.8); ABS Monocytes 0.9 10^3/ul (0-0.8); ABS Neutrophils 6.3 10^3/ul (1.5-7.7); Eosinophil % 1.5 %; Hematocrit 42 % (35-47); Hemoglobin 14.2 g/dL (12.0-16.0); Lymphocyte % 30.7 %; Mean Corpuscular HGB Conc 34 g/dL (31-36); Mean Corpuscular Hemoglobin 30 pg (27-31); Mean Corpuscular Volume 88 fL (80-97); Mean Platelet Volume 8.2 fL (7.4-10.4); Nucleated Red Blood Cells % 0.1; Platelet Count 198 10^3/uL (150-450); Red Blood Count 4.77 10^6 /uL (3.70-4.87); Red Cell Distribution Width 14 % (10-15); White Blood Count 10.6 10^3/uL (3.5-10.8)
[2018-12-14 22:58] LABS: ALT 25 U/L (7-52); AST 21 U/L (13-39); Albumin 4.6 g/dL (3.2-5.2); Albumin/Globulin Ratio 1.5 (1-3); Alkaline Phosphatase 73 U/L (34-104); Anion Gap 8 mmol/L (2-11); BUN/Creatinine Ratio 17.3 (8-20); Blood Urea Nitrogen 18 mg/dL (6-24); CO2 Carbon Dioxide 27 mmol/L (22-32); Calcium 10.4 mg/dL (8.6-10.3); Chloride 106 mmol/L (101-111); EGFR African American 79.5 (>60); EGFR Non-African American 65.7 (>60); Globulin 3.1 g/dL (2-4); Glucose 81 mg/dL (70-100); Potassium 3.9 mmol/L (3.5-5.0); Sodium 141 mmol/L (135-145); Total Protein 7.7 g/dL (6.4-8.9)
[2018-12-14 23:03] LABS: HCG Pregnancy < 0.60 mIU/mL
[2018-12-15] MEDS ORDERED: Amoxicillin/Clavulanate TAB* 500 MG PO ONE (00:14)
--- NOTE | 2018-12-15 00:45 | ED ---
GI/ HPI - HPI Summary HPI Summary: 23-year-old female presents with abdominal pain for the past couple weeks. She states that she's been having pain on left side that radiates back. Denies any loss of bowel or bladder. no saddle anesthesia. no fever. no pain into leg. no injury. She admits to some urinary symptoms. No flank pain. no chest pain shortness of breath. Has had a cough. No nausea vomiting. No diarrhea constipation. states since had iud placed has had abd pain and bleeding every day. does have history of PID when was younger. states could be . has hx of asthma. - History of Current Complaint Chief Complaint: EDBackInjuryPain Time Seen by Provider: 12/14/18 22:15 Stated Complaint: BACK PAIN PER PT Hx Last Menstrual Period: 05/25/17 Pain Intensity: 8 - Additional Pertinent History Primary Care Physician: ALPHONSO - Allergy/Home Medications Allergies/Adverse Reactions: Allergies Allergy/AdvReac Type Severity Reaction Status Date / Time adhesive Allergy Rash And Verified 12/14/18 21:21 Itching codeine Allergy Swelling Verified 12/14/18 21:21 Of Face,Lips,& Throat Fish Containing Products Allergy Swelling Verified 12/14/18 21:21 Of Face,Lips,& Throat lactose Allergy Stomach Verified 12/14/18 21:21 Cramps latex Allergy Rash Verified 12/14/18 21:21 venlafaxine Allergy Hives/Diff. Verified 12/14/18 21:21 Breathing/I tching shellfish Allergy Severe Swelling Uncoded 08/03/18 15:54 Of Face,Lips,& Throat Home Medications: Home Medications Brexpiprazole (NF) [Rexulti (NF)] 1 tab PO DAILY 12/15/18 [History Confirmed ] cloNIDine TAB* [Catapres 0.1 MG TAB*] 1 tab PO TID 12/15/18 [History Confirmed 12/15/18] PMH/Surg Hx/FS Hx/Imm Hx Endocrine/Hematology History: Reports: Hx Thyroid Disease - hashimotos on levothyroxine Comment Only: Hx Diabetes - Gestational, diet controlled Cardiovascular History: Denies: Hx Hypertension Respiratory History: Reports: Hx Asthma, Hx Seasonal Allergies Denies: Hx Chronic Obstructive Pulmonary Disease (COPD), Hx Sleep Apnea GI History: Reports: Other GI Disorders - hx bowel sx, working with PCP Denies: Hx Ulcer History: Reports: Hx Kidney Infection, Other Problems/Disorders - freq utis, PID Musculoskeletal History: Reports: Hx Arthritis Denies: Hx Back Problems, Hx Bursitis, Hx Congenital Bone Abnormalities, Hx Fibromyalgia, Hx Gout, Hx Orthopedic Injury, Hx Osteoporosis, Hx Scoliosis, Hx Tendonitis, Other Musculoskeletal History Neurological History: Reports: Hx Headaches, Hx Migraine Denies: Hx Dementia, Hx Developmental Delay, Other Neuro Impairments/ Disorders Psychiatric History: Reports: Hx Anxiety, Hx Depression, Hx Post Traumatic Stress Disorder, Hx Inpatient Treatment, Hx Community Mental Health Tx, Hx Substance Abuse, Other Psychiatric Issues/Disorders - bipolar, borderline personality disorder,schitzo affective disorder, PTSD Denies: Hx Eating Disorder, Hx of Violent Episodes Against Others - Surgical History Surgery Procedure, Year, and Place: Appendectomy Jun 2015 - Immunization History Date of Tetanus Vaccine: unknown Date of Influenza Vaccine: none Infectious Disease History: No Infectious Disease History: Denies: Hx Clostridium Difficile, Hx Hepatitis, Hx Human Immunodeficiency Virus (HIV), Hx of Known/Suspected MRSA, Hx Shingles, Hx Tuberculosis, Hx Known/ Suspected VRE, Hx Known/Suspected VRSA, History Other Infectious Disease, Traveled Outside the [place] in Last 30 Days - Family History Known Family History: Positive: Diabetes Negative: Other - mel[place], cardiac issues, cancer, thyroid issues - Social History Alcohol Use: None Hx Substance Use: Yes Substance Use Type: Reports: None Substance Use Comment - Amount & Last Used: drug screen positive for marijauna Hx Tobacco Use: Yes Smoking Status (MU): Light Every Day Tobacco Smoker Type: Cigarettes Amount Used/How Often: 3-4 cig/day Length of Time of Smoking/Using Tobacco: 3 years Have You Smoked in the Last Year: Yes Review of Systems Negative: Fever Negative: Chest Pain Negative: Shortness Of Breath Positive: Abdominal Pain, Other - vaginal bleeding. Negative: Vomiting, Nausea Positive: dysuria All Other Systems Reviewed And Are Negative: Yes Physical Exam Triage Information Reviewed: Yes Vital Signs On Initial Exam: Initial Vitals Temp Pulse Resp BP Pulse Ox 97.7 F 95 16 131/86 98 12/14/18 21:18 12/14/18 21:18 12/14/18 21:18 12/14/18 21:18 12/14/18 21:18 Vital Signs Reviewed: Yes Appearance: Positive: Well-Appearing Skin: Positive: Warm, Dry Head/Face: Positive: Normal Head/Face Inspection Eyes: Positive: Normal, EOMI, KENZIE, Conjunctiva Clear ENT: Positive: Normal ENT inspection, Pharynx normal, TMs normal Respiratory/Lung Sounds: Positive: Clear to Auscultation, Breath Sounds Present Cardiovascular: Positive: Normal, RRR Abdomen Description: Positive: Soft, Other: - tenderness LLQ Bowel Sounds: Positive: Present Pelvic Exam: Positive: External Exam Normal, Speculum Exam Normal, Bimanual Exam Normal, Blood Diagnostics - Vital Signs Vital Signs Temp Pulse Resp BP Pulse Ox 12/14/18 21:18 97.7 F 95 16 131/86 98 - Laboratory Lab Results: Lab Results 12/14/18 12/14/18 12/14/18 Range/Units 22:10 22:31 22:31 WBC 10.6 (3.5-10.8) 10^3/uL RBC 4.77 (3.70-4.87) 10^6 /uL Hgb 14.2 (12.0-16.0) g/dL Hct 42 (35-47) % MCV 88 (80-97) fL MCH 30 (27-31) pg MCHC 34 (31-36) g/dL RDW 14 (10-15) % Plt Count 198 (150-450) 10^3/uL MPV 8.2 (7.4-10.4) fL Neut % (Auto) 59.3 % Lymph % (Auto) 30.7 % [place] % (Auto) 8.1 % Eos % (Auto) 1.5 % Baso % (Auto) 0.4 % Absolute Neuts (auto) 6.3 (1.5-7.7) 10^3/ul Absolute Lymphs (auto) 3.3 (1.0-4.8) 10^3/ul Absolute Monos (auto) 0.9 H (0-0.8) 10^3/ul Absolute Eos (auto) 0.2 (0-0.6) 10^3/ul Absolute Basos (auto) 0.0 (0-0.2) 10^3/ul Absolute Nucleated RBC 0.0 10^3/ul Nucleated RBC % 0.1 Sodium 141 (135-145) mmol/L Potassium 3.9 (3.5-5.0) mmol/L Chloride 106 (101-111) mmol/L Carbon Dioxide 27 (22-32) mmol/L Anion Gap 8 (2-11) mmol/L BUN 18 (6-24) mg/dL Creatinine 1.04 H (0.51-0.95) mg/dL Est GFR ( Amer) 79.5 (>60) Est GFR (Non-Af Amer) 65.7 (>60) BUN/Creatinine Ratio 17.3 (8-20) Glucose 81 (70-100) mg/dL Calcium 10.4 H (8.6-10.3) mg/dL Total Bilirubin 0.40 (0.2-1.0) mg/dL AST 21 (13-39) U/L ALT 25 (7-52) U/L Alkaline Phosphatase 73 (34-104) U/L C-Reactive Protein 9.30 H (<8.01) mg/L Total Protein 7.7 (6.4-8.9) g/dL Albumin 4.6 (3.2-5.2) g/dL Globulin 3.1 (2-4) g/dL Albumin/Globulin Ratio 1.5 (1-3) Beta HCG, Quant < 0.60 mIU/mL Urine Color Yellow Urine Appearance Cloudy Urine pH 5.0 (5-9) Ur Specific [place] 1.026 (1.010-1.030) Urine Protein Negative (Negative) Urine Ketones Negative (Negative) Urine Blood 3+ A (Negative) Urine Nitrate Negative (Negative) Urine Bilirubin Negative (Negative) Urine Urobilinogen Negative (Negative) Ur Leukocyte Esterase Trace A (Negative) Urine WBC (Auto) 1+(6-10/hpf) A (Absent) Urine RBC (Auto) 3+(>10/hpf) A (Absent) Ur Squamous Epith Cells Present A (Absent) Urine Bacteria Absent (Absent) Urine Glucose Negative (Negative) Result Diagrams: 12/14/18 22:31 12/14/18 22:31 Lab Statement: Any lab studies that have been ordered have been reviewed, and results considered in the medical decision making process. - Ultrasound No standard instances Ultrasound Interpretation Completed By: Radiologist Summary of Ultrasound Findings: IMPRESSION: There is an IUD noted within the uterus in satisfactory position. GIGU Course/Dx - Course Course Of Treatment: 23-year-old female presents with abdominal pain for the past couple weeks. She states that she's been having pain on left side that radiates back. Denies any loss of bowel or bladder. no saddle anesthesia. no fever. no pain into leg. no injury. She admits to some urinary symptoms. No flank pain. no chest pain shortness of breath. Has had a cough. No nausea vomiting. No diarrhea constipation. states since had iud placed has had abd pain and bleeding every day. does have history of PID when was younger. states could be . has hx of asthma. on exam lungs CTA. tenderness LLQ. normal pelvic with blood present. nontender flanks. urine shows potential uti so will treat with augmentin. u/s normal. discussed that bleeding could be related to iud placement still. told follow up with watch manufacturing supervisor. patient understand and agrees with plan. - Diagnoses Differential Diagnoses - Female: Ovarian Cyst, STD, Urinary Tract Infection Provider Diagnoses: UTI (urinary tract infection), Dysfunctional uterine bleeding Discharge - Sign-Out/Discharge Documenting (check all that apply): Patient Departure Patient Received Moderate/Deep Sedation with Procedure: No - Discharge Plan Condition: Good Disposition: HOME Prescriptions: Amoxicillin/Clavulanate TAB* [Augmentin TAB 500 mg*] 500 mg PO BID #9 tab Patient Education Materials: Urinary Tract Infection in Women (ED) Referrals: Anders Constantino MD [Primary Care Provider] - Additional Instructions: Take augmentin twice a day for 5 days take ibuprofen every 6 hours for pain Follow up with watch manufacturing supervisor Return to ED if develop any new or worsening symptoms - Billing Disposition and Condition Condition: GOOD Disposition: Home
[2018-12-15 00:53] VITALS: BP 110/69
[2018-12-15 14:15] LABS: Trichomonas vaginalis Result Negative (Negative)
[2018-12-15 14:25] LABS: Neisseria gonorrhoeae (GC) RNA Negative (Negative)
--- NOTE | 2018-12-16 10:04 | PN ---
Progress Note - Progress Note Date of Service: 12/15/18 Note: Lab specimen collected group [place] Patient was placed on Augmentin, however no metronidazole at the time Called patient to make aware, however unable to leave message Letter was sent to the patient on 12/16/18
--- NOTE | 2018-12-16 10:14 | PN ---
Progress Note - Progress Note Date of Service: 12/15/18 Note: Patient called back at 10:15 AM on 12/16/18 She states she is not having any symptoms that would like like to be treated at this time
== END 2018-12-15 00:51 | disposition home or self-care (01) ==
LOC: ED 21:13
DX: N39.0 Urinary tract infection, site not specified (principal); N93.8 Other specified abnormal uterine and vaginal bleeding; R10.9 Unspecified abdominal pain; F17.210 Nicotine dependence, cigarettes, uncomplicated; E03.9 Hypothyroidism, unspecified; J45.909 Unspecified asthma, uncomplicated; Z87.448 Personal history of other diseases of urinary system; F43.10 Post-traumatic stress disorder, unspecified; F41.9 Anxiety disorder, unspecified; Z88.6 Allergy status to analgesic agent; Z79.899 Other long term (current) drug therapy
CPT/HCPCS: 36415; 76830; 80053; 81003; 81015; 84702; 85025; 86140; 87086; 87480; 87491; 87510; 87591; 87661; 99283; A9270-GY

== ENCOUNTER 2019-03-29 21:24 | Emergency (ER) | payer OTHER ==
[2019-03-29] MEDS ORDERED: Lidocaine 2% VISCOUS* 15 ML UDC PO ONE (21:37)
[2019-03-29] MEDS ORDERED: Polymyx/Trimethoprim OPTH* 10 ML BTL BOTH EYES SCH (22:00)
[2019-03-29 22:06] LABS: Rapid Strep Molecular Negative (Negative)
[2019-03-29] MEDS ORDERED: Amoxicillin/Clavulanate TAB* 875 MG PO ONE (22:31)
--- NOTE | 2019-03-29 22:32 | ED ---
Throat Pain/Nasal Congestion - HPI Summary HPI Summary: Patient complains of sore throat, productive cough, right eye redness and drainage 3 days. Denies fever, CP, SOB, N/V/D, abdominal pain, change in urine , change in BM. Medical history is Melida, asthma. - History of Current Complaint Chief Complaint: EDThroatPain Time Seen by Provider: 03/29/19 21:35 Hx Obtained From: Patient Onset/Duration: Gradual Onset, Lasting Days Severity: Severe Associated Signs And Symptoms: Positive: Dysphagia Cough: Productive - Allergies/Home Medications Allergies/Adverse Reactions: Allergies Allergy/AdvReac Type Severity Reaction Status Date / Time adhesive Allergy Rash And Verified 03/29/19 21:30 Itching codeine Allergy Swelling Verified 03/29/19 21:30 Of Face,Lips,& Throat Fish Containing Products Allergy Swelling Verified 03/29/19 21:30 Of Face,Lips,& Throat lactose Allergy Stomach Verified 03/29/19 21:30 Cramps latex Allergy Rash Verified 03/29/19 21:30 venlafaxine Allergy Hives/Diff. Verified 03/29/19 21:30 Breathing/I tching shellfish Allergy Severe Swelling Uncoded 03/29/19 21:30 Of Face,Lips,& Throat Home Medications: Home Medications Brexpiprazole (NF) [Rexulti (NF)] 2 mg PO DAILY 03/29/19 [History Confirmed 11/09] Levothyroxine TAB* [Synthroid TAB*] 200 mcg PO DAILY 03/29/19 [History Confirmed 03/29/19] PMH/Surg Hx/FS Hx/Imm Hx Endocrine/Hematology History: Reports: Hx Thyroid Disease - hashimotos on levothyroxine Comment Only: Hx Diabetes - Gestational, diet controlled Cardiovascular History: Denies: Hx Hypertension Respiratory History: Reports: Hx Asthma, Hx Seasonal Allergies Denies: Hx Chronic Obstructive Pulmonary Disease (COPD), Hx Sleep Apnea GI History: Reports: Other GI Disorders - hx bowel sx, working with PCP Denies: Hx Ulcer History: Reports: Hx Kidney Infection, Other Problems/Disorders - freq utis, PID Musculoskeletal History: Reports: Hx Arthritis Denies: Hx Back Problems, Hx Bursitis, Hx Congenital Bone Abnormalities, Hx Fibromyalgia, Hx Gout, Hx Orthopedic Injury, Hx Osteoporosis, Hx Scoliosis, Hx Tendonitis, Other Musculoskeletal History Neurological History: Reports: Hx Headaches, Hx Migraine Denies: Hx Dementia, Hx Developmental Delay, Other Neuro Impairments/ Disorders Psychiatric History: Reports: Hx Anxiety, Hx Depression, Hx Post Traumatic Stress Disorder, Hx Inpatient Treatment, Hx Community Mental Health Tx, Hx Substance Abuse, Other Psychiatric Issues/Disorders - bipolar, borderline personality disorder,schitzo affective disorder, PTSD Denies: Hx Eating Disorder, Hx of Violent Episodes Against Others - Surgical History Surgery Procedure, Year, and Place: Appendectomy Jun 2015 - Immunization History Date of Tetanus Vaccine: unknown Date of Influenza Vaccine: none Infectious Disease History: No Infectious Disease History: Denies: Hx Clostridium Difficile, Hx Hepatitis, Hx Human Immunodeficiency Virus (HIV), Hx of Known/Suspected MRSA, Hx Shingles, Hx Tuberculosis, Hx Known/ Suspected VRE, Hx Known/Suspected VRSA, History Other Infectious Disease, Traveled Outside the [place] in Last 30 Days - Family History Known Family History: Positive: Diabetes Negative: Other - mel[place], cardiac issues, cancer, thyroid issues - Social History Alcohol Use: Rare Hx Substance Use: Yes Substance Use Type: Reports: Marijuana Substance Use Comment - Amount & Last Used: drug screen positive for yasmineuna Hx Tobacco Use: Yes Smoking Status (MU): Light Every Day Tobacco Smoker Type: Cigarettes Amount Used/How Often: 3-4 cig/day Length of Time of Smoking/Using Tobacco: 3 years Have You Smoked in the Last Year: Yes Review of Systems Constitutional: Negative Eyes: Negative Positive: Sore Throat Cardiovascular: Negative Positive: Cough Gastrointestinal: Negative Genitourinary: Negative Musculoskeletal: Negative Skin: Negative Neurological: Negative Psychological: Normal All Other Systems Reviewed And Are Negative: Yes Physical Exam Triage Information Reviewed: Yes Vital Signs On Initial Exam: Initial Vitals Temp Pulse Resp BP Pulse Ox 98.6 F 93 16 156/79 98 03/29/19 21:27 03/29/19 21:27 03/29/19 21:27 03/29/19 21:27 03/29/19 21:27 Vital Signs Reviewed: Yes Appearance: Positive: Well-Appearing Skin: Positive: Warm Head/Face: Positive: Normal Head/Face Inspection Eyes: Positive: Normal ENT: Positive: Pharyngeal erythema, TMs normal, Uvula midline. Negative: Nasal drainage, Tonsillar swelling, Tonsillar exudate, Trismus, Muffled voice, Hoarse voice Neck: Positive: Supple Respiratory/Lung Sounds: Positive: Clear to Auscultation Cardiovascular: Positive: Normal Abdomen Description: Positive: Nontender Musculoskeletal: Positive: Normal Neurological: Positive: Normal Psychiatric: Positive: Normal AVPU Assessment: Alert - [place] Coma Scale Best Eye Response: 4 - Spontaneous Best Motor Response: 6 - Obeys Commands Best Verbal Response: 5 - Oriented Coma Scale Total: 15 Procedures - Sedation Patient Received Moderate/Deep Sedation with Procedure: No Diagnostics - Vital Signs Vital Signs Temp Pulse Resp BP Pulse Ox 03/29/19 21:27 98.6 F 93 16 156/79 98 - Laboratory Lab Results: Lab Results 03/29/19 Range/Units 21:38 Group A Strep Rapid Negative (Negative) Lab Statement: Any lab studies that have been ordered have been reviewed, and results considered in the medical decision making process. EENT Course/Dx - Course Course Of Treatment: Patient complains of sore throat, productive cough, right eye redness and drainage 3 days. Denies fever, CP, SOB, N/V/D, abdominal pain , change in urine, change in BM. Medical history is Melida, asthma. Vital signs within normal limits. Symptoms mildly improved with viscous lidocaine. Rx for polymyxin, Augmentin and viscous lidocaine. - Diagnoses Provider Diagnoses: Conjunctivitis, Pharyngitis, Respiratory infection Discharge ED - Sign-Out/Discharge Documenting (check all that apply): Patient Departure - Discharge Plan Condition: Stable Disposition: HOME Prescriptions: Amoxicillin/Clavulanate TAB* [Augmentin TAB 875*] 875 mg PO BID #20 tab Lidocaine 2% VISCOUS* [Xylocaine 2% Viscous*] 15 ml SWISH SPIT Q6H PRN #1 btl PRN Reason: Pain - Moderate Patient Education Materials: Pharyngitis (ED), Conjunctivitis (ED) Referrals: Anders Constantino MD [Primary Care Provider] - Additional Instructions: Alternate ibuprofen 600 mg with Tylenol 650 mg every 3 hours as needed for pain. Use lidocaine as directed for sore throat pain. Take antibiotics as prescribed. One drop of eye solution in each eye every 3 hours for 7 days. Follow-up with primary care. Return to the ED for any new or worsening symptoms. - Billing Disposition and Condition Condition: STABLE Disposition: Home
[2019-03-29 22:50] VITALS: BP 120/86
== END 2019-03-29 22:48 | disposition home or self-care (01) ==
LOC: ED 21:24
DX: J02.9 Acute pharyngitis, unspecified (principal); J06.9 Acute upper respiratory infection, unspecified; H10.9 Unspecified conjunctivitis; E03.9 Hypothyroidism, unspecified; F41.9 Anxiety disorder, unspecified; F32.9 Major depressive disorder, single episode, unspecified; F43.10 Post-traumatic stress disorder, unspecified; F17.210 Nicotine dependence, cigarettes, uncomplicated; Z79.899 Other long term (current) drug therapy; Z90.89 Acquired absence of other organs; Z88.5 Allergy status to narcotic agent; Z88.8 Allergy status to other drugs, medicaments and biological substances; Z91.040 Latex allergy status
CPT/HCPCS: 36415; 71046; 86308; 87651; 99282; A9270-GY

== ENCOUNTER 2019-06-12 12:56 | Emergency (ER) | payer OTHER ==
--- OUTSIDE RECORDS SUMMARY | 2019-06-12 13:03 | XMS REPORT | Continuity of Care Document ---
:[address] [facility] Address [address] [place] [address] Phone Care Team Providers Name Role Phone Aminata Del Toro NP Unavailable Unavailable Allergies, Adverse Reactions, Alerts Substance Reaction Status latex Active adhesive Hives/Skin Rash, Rash Active shellfish derived Anaphylaxis Active VENLAFAXINE HCL Active codeine Hives/Skin Rash Active Medications Medication Instructions Dosage Effective Dates Status Comments (start - stop) SYNTHROID (unknown Not Available - Active strength) Mirena 20 mcg/24 hr Insert IU - No Longer (5 years) Active intrauterine device REXULTI (unknown Not Available - No Longer strength) Active WELLBUTRIN XL Not Available - No Longer (unknown strength) Active LAMICTAL XR (unknown Not Available - No Longer strength) Active Problems Condition Effective Dates (start - Clinical Status Comments stop) Human immunodeficiency virus [HIV] - counseling Encounter for screening for human - immunodeficiency virus Encntr screen for infections w sexl mode of transmiss Encounter for removal of intrauterine contraceptive device Encounter for test, result negative Body mass index (BMI) 38.0-38.9, adult Encounter for insertion of intrauterine contraceptive device Encounter for test, result positive Encounter for removal of intrauterine contraceptive device Encntr screen for infections w sexl mode of transmiss Acute vaginitis Encounter for prescription of emergency contraception Encounter for insertion of intrauterine contraceptive device Encounter for test, result negative Encounter for surveillance of other contraceptives Encntr screen for infections w sexl mode of transmiss Encounter for test, result negative Encntr screen for infections w sexl mode of transmiss Pelvic and perineal pain IUC Removal IUC, Surveillance PT, Negative Anemia, Screening Family Planning Counseling IUC Insertion BV OCP, Start LABORATORY EXAM NOS LABORATORY EXAM NOS Procedures Procedure Date PREVENTIVE COUNSELING, 8-14 Minutes HIV-1/HIV-2, SINGLE ASSAY REMOVE INTRAUTERINE DEVICE Tray Fee OFFICE/OUTPATIENT VISIT, EST OTHER Medical Services Contraceptive Manager Monitoring.Svc. Other Manager Monitoring.Svc. STI Results Test Name Date and Time Measure Units Reference Range Abnormal Flag Status Comments No information Advance Directives Directive Yes / No Effective Date File Name No information Encounters Encounter Practice Location Reason(s) Diagnoses Date Provider Providers Description For Visit Copied on Encounter PREVENTIVE [facility] IUC Human Katey Referring COUNSELING, [facility] [place] Removal immunodeficienc Aminata. 620 Provider: 8-14 Minutes Of Greater (chief y virus [HIV] 0 [facility], [facility], complaint) counselingEncou [place], [place], Katey Reyes [address] [place] [address], [place]. [facility], [facility] Testing No screening for tel:[phone] , [place], [place], Sympt[place] [address] [place], [address]. [id number], (F) (chief immunodeficienc tel:[phone] [place] complaint) y virusEncntr [id number] tel:[phone] screen for [phone] infections w sexl mode of transmissEncoun ter for removal of intrauterine contraceptive device [facility] Encounter for Katey Referring [facility] [place] test, Aminata. 620 Provider: Of Greater result 9 [facility], negativeBody [place], [place], Katey Reyes, Venkatesh [address] mass index [address], [place]. [address], New (BMI) tel:[phone] , [place], [place], 38.0-38.9, [address] [place], [address]. [id number], adultEncounter tel:[phone] [place] for insertion 987220 tel:[phone] of intrauterine [phone] contraceptive device [facility] Encounter for [facility] [place] test, . [address] Of Greater result positive [address], [place], [place], [place], [address] [address], [place] tel:[phone] [place], [id number], [place] tel:[phone] [facility] Encounter for Jul- White Radha. [facility] [place] removal of [address] Of Greater intrauterine [address], [place], [place], [place], [address], [address] [place], screen for [place], [place], infections w [id number], sexl mode of [place] transmissAcute tel:[phone] for prescription of emergency contraception [facility] Encounter for Borglum Referring [facility] [place] insertion of Anali. 620 Provider: Of Greater intrauterine [address], Ten[place], contraceptive [place], [place], Lola R, [address] deviceEncounter [address], [place]. [address] W , [place] for tel:[phone] [address], [place], [place], test, result [address] [place], [place], [id number], negative [address]. [place] tel:[phone] tel:[phone] [facility] Encounter for Velasquez- White Radha. [facility] [place] surveillance of [address] Of Greater other [address], [place], [place], [place], [address], [address] screen [place]. St, [place] for infections [place], w sexl mode of [id number], transmiss [place] tel:[phone] [facility] Encounter for Mar- P[facility] [place] test, . [address] Of Greater result [address], [place], negativeEncntr [place], [address] [place] [address], New infections w tel:[phone] [place], [place] [id number], transmissPelvic [place] and perineal tel:[phone] pain [phone] [facility] IUC Removal September- Ethanidis [facility] [place] 8 Veronica. [address] Of Greater [address] [place], [place], [place], [place], [address] [address], [place] tel:[phone] [place], [id number], [place] tel:[phone] [facility] IUC, Aug-1 P[facility]te [facility] [place] Surveillance 5 Azra. [address] Of Greater [address] [place], [place], [place], [place], [address] [address]. , New tel:[phone] [place], [id number], [place] tel:[phone] [facility] PT, Aug-0 Jovany Referring [facility] [place] NegativeAnemia, Jeremi. 135 Provider: Of [facility] 5 [facility], Planning [place], [place], Lola R, [address] CounselingIUC [address], [place]. [address] , [facility] InsertionBV tel:[phone] [place], [address] [place], [place], [id number], [address]. [place] tel:[phone] tel:[phone] [facility] OCP, Start Nov-0 [facility] [place] 3 Veronica. [address] Of Greater [address] [place], [place], [place], [place], [address] [address]. , New tel:[phone] [place], [id number], [place] tel:[phone] [facility] Sep-2 Lola [facility] [place] 9 Tenisha. [address] Of Greater [address] [place], [place], [place], [place], [address] [address]. , New tel:[phone] [place], [id number], [place] tel:[phone] [facility] LABORATORY EXAM Dec-0 [facility] [place] NOS 9- Ember. [address] Of Greater [address] [place], [place], [place], [address] [address]. [facility] tel:[phone] [place], [id number], tel:[phone] [facility] LABORATORY EXAM Sep-1 [employer] [facility] [place] NOS 2-[facility] Provider: Of [address] 620 NURSE [place]AN [place] Watkins , [facility]. [address] [facility] [address]. [place], [place], tel:[phone], [address] tel:[phone] Family History Family Member Diagnosis Age At Onset Maternal grandmother Coronary artery disease Maternal grandmother Diabetes mellitus Maternal grandfather Diabetes mellitus Maternal grandmother Cancer, uterine Immunizations Vaccine Date Status Comments Hep A (adult) administered Note: Pt reports prior vaccination on health history form dated 10/26/12.Invalid documented admin date was NULL/NULL. ; Source: Source Unspecified Hep B, adult, 3 dose administered Note: Pt reports prior vaccination on health history form dated 10/26/12.Invalid documented admin date was NULL/NULL/2012. ; Source: Source Unspecified HPV (quadrivalent) administered Note: Pt reports prior vaccination on health history form dated 10/26/12.Invalid documented admin date was NULL/NULL/2012. ; Source: Source Unspecified measles, mumps and rubella administered Note: Pt reports prior virus vaccine vaccination on health history form dated 10/26/12.Invalid documented admin date was NULL/NULL. ; Source: Source Unspecified Payers Payer name Insurance type Covered constitution party ID Authorization(s) Vance RANGEL [facility] CI [id number] Social History Type Description Quantity Date Captured Comments Alcohol Use Details Unknown Caffeine Use Details Unknown Tobacco Use Status Smoking Status Light tobacco smoker Sex Female Vital Signs Date / Height Weight BMI Pulse Blood Temperature Respiratory Body Head BMI Pulse Inhaled Time: Rate Pressure Rate Surface Circumference percentile Ox Ox Area No information Chief Complaint And Reason For Visit Most recent encounter only, dated '06/05/2019 17:30'. IUC Removal (chief complaint)STI Testing No Symptoms (F) (chief complaint) Reason For Referral Reason For Referral No information Plan Of Treatment Date Type Action Status Goal Tobacco cessation counseling completed History Of Present Illness Encounter Date Complaint History Of Present Illness No information Functional Status Date Functional Assessment No information Medications Administered Medication Instructions Dosage Effective Dates (start - stop) Status Comments No information Instructions Date Instruction Additional Information No information Assessments Type Assessment Date assessment Human immunodeficiency virus [HIV] counseling assessment Encounter for screening for human immunodeficiency virus 2019 assessment Encntr screen for infections w sexl mode of transmiss assessment Encounter for removal of intrauterine contraceptive device 2019 Goals Health Concern Goal Type Priority Status Date No information Medical Equipment Description Device [place] Device Identifier Effective Dates (start - stop ) Status No information Mental Status Date Cognitive Assessment Normal Orientation Health Concerns Observation Date No information Concern Status Date No information
[2019-06-12 13:26] VITALS: BP 107/71
--- NOTE | 2019-06-12 13:37 | UC ---
Ear Complaint HPI - HPI Summary HPI Summary: 23 yo female presents with jaw pain. She tells me that she has a hx of TMJ disorder, but hasn't had any issues in 3-4 years. Over the last 3 days has had worsening left TMJ pain that is worse with chewing and opening her jaw. She has been taking ibuprofen, which helps intermittently. She states that when she had this issue in the past she had muscle relaxers with good relief and is requesting an rx for these today. Denies injury, ear pain, sore throat, sinus symptoms, dental pain, neck pain. - History of Current Complaint Chief Complaint: UCDentalProblem Stated Complaint: JAW PAIN Time Seen by Provider: 06/12/19 13:37 Hx Obtained From: Patient Hx Last Menstrual Period: 06/07/2019 Onset/Duration: Gradual Onset Severity Initially: Moderate Severity Currently: Moderate Pain Intensity: 8 Pain Scale Used: 0-10 Numeric - Allergies/Home Medications Allergies/Adverse Reactions: Allergies Allergy/AdvReac Type Severity Reaction Status Date / Time adhesive Allergy Rash And Verified 06/12/19 13:27 Itching codeine Allergy Swelling Verified 06/12/19 13:27 Of Face,Lips,& Throat Fish Containing Products Allergy Swelling Verified 06/12/19 13:27 Of Face,Lips,& Throat lactose Allergy Stomach Verified 06/12/19 13:27 Cramps latex Allergy Rash Verified 06/12/19 13:27 venlafaxine Allergy Hives/Diff. Verified 06/12/19 13:27 Breathing/I tching shellfish Allergy Severe Swelling Uncoded 06/12/19 13:27 Of Face,Lips,& Throat PMH/Surg Hx/FS Hx/Imm Hx Psychological History: Anxiety, Depression, Bipolar Disorder - Surgical History Surgical History: Yes Surgery Procedure, Year, and Place: Appendectomy Jun 2015 - Family History Known Family History: Positive: Diabetes Negative: Other - [place], cardiac issues, cancer, thyroid issues - Social History Occupation: Unemployed Lives: With Family Alcohol Use: Rare Substance Use Type: Marijuana Substance Use Comment - Amount & Last Used: drug screen positive for ainsleyjauna Smoking Status (MU): Heavy Every Day Tobacco Smoker Type: Cigarettes Amount Used/How Often: 3-4 cig/day Length of Time of Smoking/Using Tobacco: 3 years Have You Smoked in the Last Year: Yes Household Exposure Type: Cigarettes - Immunization History Most Recent Influenza Vaccination: 1/2/19 Most Recent Tetanus Shot: utd Most Recent Pneumonia Vaccination: n/a Vaccination Up to Date: Yes Review of Systems All Other Systems Reviewed And Are Negative: No Constitutional: Positive: Negative Skin: Positive: Negative Eyes: Positive: Negative ENT: Positive: Negative Respiratory: Positive: Negative Cardiovascular: Positive: Negative Neurovascular: Positive: Negative Musculoskeletal: Positive: Other: - Left TMJ pain Neurological: Positive: Negative Psychological: Positive: Negative Physical Exam - Summary Physical Exam Summary: GENERAL: NAD. WDWN. No pain distress. SKIN: No rashes, sores, lesions, or open wounds. HEENT: Head: AT/NC. LEFT TMJ - moderate TTP. Click with opening jaw. Opens and closes jaw completely. Eyes: EOM intact. Conjunctiva clear without inflammation or discharge. Ears: Hearing grossly normal. TMs intact, no bulging, erythema, or edema. Nose: Nasal mucosa pink and moist. NTTP maxillary and frontal sinus. Throat: Posterior oropharynx without exudates, erythema, or tonsillar enlargement. Uvula midline. NECK: Supple. Nontender. No lymphadenopathy. CHEST: CTAB. No r/r/w. No accessory muscle use. Breathing comfortably and in no distress. CV: RRR. Pulses intact. Cap refill <2seconds NEURO: Alert. PSYCH: Age appropriate behavior. Triage Information Reviewed: Yes Vital Signs: Initial Vital Signs Temp 98 F 06/12/19 13:23 Pulse 100 06/12/19 13:23 Resp 20 06/12/19 13:23 BP 107/71 06/12/19 13:23 Pulse Ox 99 06/12/19 13:23 Vital Signs Reviewed: Yes Ear Complaint Course/Dx - Course Course Of Treatment: Suspect flare of TMJ pain. Will rx for flexeril and naproxen and have her try a soft easy-to-eat diet. - Differential Dx/Diagnosis Provider Diagnosis: TMJ (temporomandibular joint disorder) Discharge ED - Sign-Out/Discharge Documenting (check all that apply): Patient Departure All imaging exams completed and their final reports reviewed: No Studies - Discharge Plan Condition: Stable Disposition: HOME Prescriptions: Cyclobenzaprine TAB* [Flexeril 10 MG TAB*] 10 mg PO BID PRN #10 tab PRN Reason: Pain - Mild Naproxen [Naproxen 500 mg tab] 500 mg PO BID PRN #30 tablet.dr BALLARD Reason: Pain - Moderate Patient Education Materials: Temporomandibular Disorder (ED) Referrals: Anders Constantino MD [Primary Care Provider] - Additional Instructions: If you develop a fever, shortness of breath, chest pain, new or worsening symptoms - please call your PCP or go to the ED immediately. Try soft and easy to chew foods - Billing Disposition and Condition Condition: STABLE Disposition: Home - Attestation Statements Provider Attestation: I was available for consult. This patient was seen by the [facility]. The patient was not presented to, seen by, or examined by me. -Yolanda
== END 2019-06-12 13:45 | disposition home or self-care (01) ==
LOC: UCEAST 12:56
DX: M26.602 Left temporomandibular joint disorder, unspecified (principal); F31.9 Bipolar disorder, unspecified; E11.9 Type 2 diabetes mellitus without complications; F17.210 Nicotine dependence, cigarettes, uncomplicated; Z91.09 Other allergy status, other than to drugs and biological substances; Z88.5 Allergy status to narcotic agent; Z91.013 Allergy to seafood; Z91.040 Latex allergy status; Z88.9 Allergy status to unspecified drugs, medicaments and biological substances; Z91.011 Allergy to milk products
CPT/HCPCS: 99212; G0463